=== PATIENT | female | born 1965 | race Caucasian/White ===

== ENCOUNTER 2016-04-03 18:52 | Emergency (ER) | payer MEDICAID, OTHER ==
[~2016-04-03] VITALS: Ht 134.6 cm; Wt 47.6 kg
[2016-04-03 19:05] VITALS: BP 190/72; PULSE 69; RESP 16; TEMP 98.1; O2SAT 98
[2016-04-03 21:00] VITALS: BP 149/80; PULSE 76; RESP 16; TEMP 98.4; O2SAT 99
== END 2016-04-03 21:00 | disposition home or self-care (01) ==
LOC: SED 18:52
DX: T82.838A Hemorrhage due to vascular prosthetic devices, implants and grafts, initial encounter (principal)
CPT/HCPCS: 99283

== ENCOUNTER 2016-06-05 16:55 | Inpatient (IN) | payer MEDICAID ==
[~2016-06-05] VITALS: Ht 149.9 cm; Wt 44.0 kg
[2016-06-05 16:55] VITALS: BP_SYST 212
--- NOTE | 2016-06-05 17:01 | NUR ---
BROUGHT BACK TO BED #4 AND REPORT GIVEN TO JEREMIE
--- NOTE | 2016-06-05 17:01 | NUR ---
Pt report received from MICAELA Donovan. Pt was seen at her PMD today and sent to ER r/t elevated B/P. Pt denies c/o headache, no C/P or SOB. Pt receives dialysis MWF, last dialyzed today. Dialysis shunt to LUE, non functional. Dialysis catheter to Right chest wall.
--- NOTE | 2016-06-05 17:25 | NUR ---
Pt to CT via stretcher, stable condition.
[2016-06-05] MEDS ORDERED: NITROGLYCERIN 0.4 MG TAB.SUBL SL ONE ×2 (17:30→19:30)
--- NOTE | 2016-06-05 17:35 | NUR ---
Pt returns from CT. Denies c/o pain or discomfort, no needs verbalized at this time.
[2016-06-05 17:58] LABS: BASOPHILS % (AUTO) 0.4 % (0.0-2.0); EOSINOPHILS # (AUTO) 0.1 K/uL (0.0-0.4); EOSINOPHILS % (AUTO) 1.4 % (0.0-4.0); HEMATOCRIT 41.1 % (36-48); LYMPHOCYTES # (AUTO) 1.1 K/uL (1.0-5.5); LYMPHOCYTES % (AUTO) 11.1 % (20.5-51.5); MEAN CORPUSCULAR HEMOGLOBIN 30 pg (27-31); MEAN CORPUSCULAR HGB CONC 32 % (32-36); MEAN CORPUSCULAR VOLUME 94 fL (79.0-98.0); MONOCYTES # (AUTO) 0.6 K/uL (0.0-1.0); MONOCYTES % (AUTO) 5.5 % (1.7-9.3); NEUTROPHILS # (AUTO) 8.3 K/uL (1.8-7.7); NEUTROPHILS % (AUTO) 81.6 % (40.0-70.0); PLATELET COUNT (AUTO) 173 K/uL (130-430); RED BLOOD CELL COUNT(AUTO) 4.35 MIL/uL (4.2-6.2); RED CELL DISTRIBUTION WIDTH 16.9 % (9.0-15.0); WHITE BLOOD COUNT (AUTO) 10.1 K/uL (4.8-10.8)
[2016-06-05 18:07] LABS: CREATININE 5.49 mg/dL (0.55-1.30); POTASSIUM 4.4 mmol/L (3.5-5.1)
[2016-06-05 18:09] LABS: PROTHROMBIN TIME 10.6 SECS (9.5-12.5)
[2016-06-05 18:12] LABS: ALBUMIN 3.9 g/dL (3.4-4.8); TOTAL BILIRUBIN 0.3 mg/dL (0.0-1.0); TOTAL PROTEIN, SERUM 8.9 g/dL (6.4-8.3)
[2016-06-05] MEDS ORDERED: ASPIRIN 81 MG TAB.CHEW PO ONE (18:45)
--- NOTE | 2016-06-05 19:08 | NUR ---
Received shift report from Rocío HINOJOSA. Patient in ER C/O elevated BP. No acute distress. Denies pain at this time. Patient states that she is anuric and unable to provide urine for urinalysis.
--- NOTE | 2016-06-05 19:10 | NUR ---
Patient is anuric. Unable to provide urine sample.
[2016-06-05] MEDS ORDERED: [UNRECOGNIZED DRUG - CODE] PO (19:15)
[2016-06-05] MEDS ORDERED: CHOL100053 PO (19:15)
[2016-06-05] MEDS ORDERED: PRO40 PO (19:15)
[2016-06-05] MEDS ORDERED: CLOP75TA2 PO (19:15)
[2016-06-05] MEDS ORDERED: ISMO20 PO (19:15)
[2016-06-05] MEDS ORDERED: ASA81 PO (19:15)
[2016-06-05] MEDS ORDERED: LISI40TA4 PO (19:15)
[2016-06-05] MEDS ORDERED: SEVE800T8 PO (19:15)
[2016-06-05] MEDS ORDERED: ATEN-41 PO (19:15)
--- NOTE | 2016-06-05 19:17 | NUR ---
Patient does not meet SEPSIS protocol.
[2016-06-05] MEDS ORDERED: TIMO5DRO4 OP (19:21)
[2016-06-05] MEDS ORDERED: LATA2.5D6 OP (19:21)
[2016-06-05] MEDS ORDERED: NITSL SL (19:21)
[2016-06-05] MEDS ORDERED: INSU100V11 SQ (19:21)
[2016-06-05] MEDS ORDERED: NOR10 PO (19:21)
[2016-06-05] MEDS ORDERED: LINA5TAB2 PO (19:21)
[2016-06-05] MEDS ORDERED: ALPR1TAB2 PO (19:21)
[2016-06-05] MEDS ORDERED: INSU100V (19:21)
--- NOTE | 2016-06-05 19:21 | NUR ---
Patient is ER HOLD until BP < 160 per TELE charge.
[2016-06-05] MEDS ORDERED: BRI.2% OP (19:23)
--- NOTE | 2016-06-05 19:23 | NUR ---
Medication reconciliation completed with loist provided by pt.
[2016-06-05] MEDS ORDERED: cloNIDine HCL 0.1 MG TABLET PO ONE (19:30)
[2016-06-05] MEDS ORDERED: DEXTROSE 50% JECT 50 ML DISP.SYRIN IVP PRN (19:45)
--- NOTE | 2016-06-05 20:20 | NUR ---
Informed Dr Wilson of sustained SBP > 200. Received the following orders. - Labetalol IVP 20mg NOW - Hemodialysis STAT
[2016-06-05] MEDS ORDERED: LABETALOL 100 MG/ 20ML VIAL IVP ONE (20:30)
--- NOTE | 2016-06-05 20:35 | NUR ---
Transfer to [facility] via ACLS protocol. Licensed nurse present. IV present no signs or symptoms of infiltration.
[2016-06-05] MEDS ORDERED: LABETALOL 100 MG/ 20ML VIAL ONE (20:44)
--- NOTE | 2016-06-05 20:52 | NUR ---
ADMIT NOTE Received pt from ER to the floor with a diagnosis of chest pain, elevated troponin. Admission process initiated. patient oriented to pain management, safety and call light-teach back done.
[2016-06-05 20:59] VITALS: BP_SYST 198
[2016-06-05] MEDS ORDERED: LATANOPROST 2.5 ML DROPS (XALATAN) OP SCH (21:00)
[2016-06-05] MEDS: BRIMONIDINE TARTRATE 0.2% 5 mL EYE DROPS OP SCH (21:00)
--- NOTE | 2016-06-05 21:11 | NUR ---
PM ASSESSMENT PT. A/OX4, BLOOD PRESSURE IS 198/92, DENIES PAIN, DENIES HEADACHE AT THIS TIME, PRN CLONIDINE TO BE GIVEN, NOTED WITH R. CHEST SARITA CATH COVERED WITH DRESSING CLEAN, DRY, INTACT, NOTED WITH OLD FISTULA TO LEFT UPPER ARM, UPDATED WITH PLAN OF CARE, ENCOURAGED PT. TO USE CALL LIGHT FOR ASSISTANCE, CALL LIGHT WITHIN REACH, WILL CONTINUE TO MONITOR.
[2016-06-05] MEDS: cloNIDine HCL 0.1 MG TABLET PO PRN (21:43)
[2016-06-05] MEDS: ALPRAZolam 0.25 MG TABLET PO SCH (21:44)
--- NOTE | 2016-06-05 22:36 | NUR ---
CONSULT: CONSULT CALLED FOR DR. LUJAN I SPOKE WITH CRISTIAN MARSHALL IS HYDRO STATION OPERATOR FOR DR. LUJAN REASON FOR CONSULT: CH AND ELEVATED TROPONIN NUMBER I CALLED [phone]
--- NOTE | 2016-06-05 22:38 | NUR ---
CONSULT: CONSULT CALLED FOR ROXIE SAN I SPOKE WITH CRISTIAN CASTRO IS MERCHANT POLICE FOR DR. FAUSTIN REASON FOR CONSULT: DIALYSIS NUMBER I CALLED: [phone]
--- NOTE | 2016-06-05 22:48 | NUR ---
DIALYSIS NURSE IS AT THE BEDSIDE.
[2016-06-06] VITALS (7 sets, daily range): BP systolic 165–213
--- NOTE | 2016-06-06 | NUR ---
RN ROUNDS PT. STILL RECEIVING DIALYSIS AT THIS TIME.
--- NOTE | 2016-06-06 02:01 | NUR ---
DIALYSIS COMPLETE DIALYSIS COMPLETE WITH 1.2 L OUTPUT. DIALYSIS NURSE CHANGED DRESSING TO DIALYSIS ACCESS.
--- NOTE | 2016-06-06 03:15 | NUR ---
DR. MARSHALL SPOKE WITH DR. MARSHALL, MADE AWARE PT.'S BLOOD PRESSURE IS ELEVATED AT 200/80 AND THAT SHE IS C/O HEADACHE, MADE AWARE OF TROPONIN 0.142, SAID TO CONTINUE MONITORING THE PATIENT, NO FURTHER ORDERS RECEIVED AT THIS TIME.
[2016-06-06] MEDS: cloNIDine HCL 0.1 MG TABLET PO PRN ×2 (04:41→23:55)
[2016-06-06] MEDS ORDERED: LABETALOL 100 MG/ 20ML VIAL IVP ONE (05:45)
--- NOTE | 2016-06-06 05:45 | NUR ---
DR. ALCANTARA PAGED AND SPOKE WITH DR. ALCANTARA, MADE AWARE BLOOD PRESSURE IS STILL ELEVATED AT 222/99 AND THAT PT. STILL HAS A HEADACHE, INFORMED DR. ALCANTARA THAT DR. MARSHALL IS AWARE AND DID NOT WANT ANY NEW ORDERS. DR. ALCANTARA ORDERED ONE TIME DOSE OF LABETALOL 20 MG IVP NOW. ORDER NOTED AND TO BE CARRIED OUT.
[2016-06-06] MEDS: INSULIN REGULAR, HUMAN 100 UNITS/ML, 10 ML VIAL (novoLIN R) SUBCUT PRN ×3 (05:56→18:35)
--- NOTE | 2016-06-06 06:00 | NUR ---
ACCUCHECK BLOOD MCZYS=959, 4 UNITS REGULAR INSULIN GIVEN ORDERED.
--- NOTE | 2016-06-06 06:48 | NUR ---
CLOSING NOTES CURRENT BLOOD PRESSURE 195/88, O2 SAT. 98% ON ROOM AIR, PT. SLEEPING QUIETLY AT THIS TIME, IV ACCESS PATENT AND BENIGN.
--- NOTE | 2016-06-06 08:00 | NUR ---
OPENING NOTES PATIENT IS AWAKE AND ALERT, STATES HER APPETITE HAS BEEN POOR.
[2016-06-06] MEDS ORDERED: amLODIPine BESYLATE 10 MG TABLET PO SCH (09:00)
[2016-06-06] MEDS ORDERED: TIMOLOL MALEATE 0.5% OPHTHALMIC DROPS 5 ML OP SCH (09:00)
[2016-06-06] MEDS: BRIMONIDINE TARTRATE 0.2% 5 mL EYE DROPS OP SCH ×3 (09:00→21:00)
--- NOTE | 2016-06-06 09:30 | NUR ---
DR LUJAN IN TO SEE PATIENT. NEW ORDERS AND ASJUSTMENTS TO PO BP MEDS GIVEN. SERIAL TROPONINS SCHEDULED. DR LUJAN DOES NOT WANT A REPEAT BMP AT THIS TIME.
[2016-06-06] MEDS: LISINOPRIL 20 MG TABLET PO SCH (09:49)
[2016-06-06] MEDS: ATENOLOL 25 MG TABLET(TENORMIN) PO SCH (09:49)
[2016-06-06] MEDS: PANTOPRAZOLE SODIUM 40 MG TAB PO SCH (09:50)
[2016-06-06] MEDS: CLOPIDOGREL BISULFATE 75 MG TABLET PO SCH (09:50)
[2016-06-06] MEDS: ASPIRIN 81 MG TAB.CHEW PO SCH (09:50)
[2016-06-06] MEDS ORDERED: cloNIDine HCL 0.2 MG TABLET PO ONE (10:15)
[2016-06-06] MEDS ORDERED: ATORVASTATIN 20 MG TABLET PO ONE (10:15)
[2016-06-06] MEDS ORDERED: hydrALAZINE HCL 25 MG TABLET PO ONE (10:15)
--- NOTE | 2016-06-06 10:30 | NUR ---
PATIENT MEDICATED ORDERED.
--- NOTE | 2016-06-06 13:00 | NUR ---
PATIENT GIVEN FOOD BEFORE ACCUCHECK. BG 412. 12 UNITS OF INSULIN ORDERED FOR COVERAGE. DR MARICRUZ MELENDEZ
[2016-06-06] MEDS: hydrALAZINE HCL 25 MG TABLET PO SCH ×2 (15:11→21:11)
--- NOTE | 2016-06-06 16:00 | NUR ---
DR SNOW IN TO SEE PATIENT. NEW ORDERS GIVEN.
[2016-06-06] MEDS ORDERED: DOCUSATE SODIUM 100 MG CAPSULE PO PRN (16:45)
--- NOTE | 2016-06-06 17:05 | NUR ---
FAMILY IS AT BEDSIDE.
[2016-06-06] MEDS ORDERED: COMMUNICATION ORDER XX ONE ×2 (17:15→19:45)
[2016-06-06] MEDS ORDERED: cloNIDine HCL 0.2 MG/24 HR PATCH.TDWK TD ONE (17:30)
--- NOTE | 2016-06-06 19:36 | NUR ---
DR ALCANTARA PAGED AT 1700 REGARDING ORDER FOR 100UNITS OF INSULIN. FAMILY STATES IT IS 11 UNITS NIGHTLY. AWAITING RETURN CALL AT THIS TIME.
--- NOTE | 2016-06-06 19:45 | NUR ---
PM ASSESSMENT PT. A/OX4, B/P 165/83, NO DISTRESS NOTED, DENIES PAIN, NOTED WITH DIALYSIS ACCESS TO R. UPPER CHEST COVERED WITH DRESSING, NOTED WITH OLD NON FUNCTIONING FISTULA TO LEFT UPPER ARM, UPDATED WITH PLAN OF CARE, ENCOURAGED PT. TO USE CALL LIGHT FOR ASSISTANCE, FALL/SAFETY PRECAUTIONS MAINTAINED, CALL LIGHT WITHIN REACH, WILL CONTINUE TO MONITOR.
[2016-06-06] MEDS: LATANOPROST 2.5 ML DROPS (XALATAN) OP SCH (21:00)
[2016-06-06] MEDS ORDERED: cloNIDine HCL 0.2 MG TABLET PO SCH (21:00)
[2016-06-06] MEDS: ALPRAZolam 0.25 MG TABLET PO SCH (21:11)
[2016-06-06] MEDS: NIFEDIPINE 30 MG TAB.ER.24 PO SCH (21:11)
--- NOTE | 2016-06-06 21:30 | NUR ---
RN ROUNDS PT. RESTING QUIETLY, NO DISTRESS NOTED, DENIES PAIN, CALL LIGHT WITHIN REACH, WILL CONTINUE TO MONITOR.
--- NOTE | 2016-06-06 23:30 | NUR ---
ACCUCHECK BLOOD SRMHW=560, NO COVERAGE REQUIRED.
[2016-06-07] VITALS: BP_SYST 170
--- NOTE | 2016-06-07 | NUR ---
CLONIDINE B/P IS 170/79, CLONIDINE 0.1MG PO GIVEN ORDERED. WILL CONTINUE TO MONITOR.
--- NOTE | 2016-06-07 02:00 | NUR ---
RN ROUNDS PT. RESTING QUIETLY, NO DISTRESS NOTED, DENIES PAIN, CALL LIGHT WITHIN REACH, WILL CONTINUE TO MONITOR.
[2016-06-07 04:00] VITALS: BP_SYST 137
--- NOTE | 2016-06-07 04:00 | NUR ---
RN ROUNDS PT. RESTING QUIETLY, NO DISTRESS NOTED, DENIES PAIN, CALL LIGHT WITHIN REACH, WILL CONTINUE TO MONITOR.
[2016-06-07] MEDS: hydrALAZINE HCL 25 MG TABLET PO SCH ×3 (05:31→21:31)
--- NOTE | 2016-06-07 06:21 | NUR ---
ACCUCHECK/CLOSING NOTES BLOOD PXNYC=329, 4 UNITS REGULAR INSULIN GIVEN ORDERED. PT. RESTING QUIETLY, VITAL SIGNS STABLE, NO DISTRESS NOTED, DENIES PAIN. ALL ANTICIPATED NEEDS MET, KEPT COMFORTABLE.
[2016-06-07] MEDS: INSULIN REGULAR, HUMAN 100 UNITS/ML, 10 ML VIAL (novoLIN R) SUBCUT PRN ×3 (06:32→18:07)
[2016-06-07 06:44] LABS: BASOPHILS % (AUTO) 0.2 % (0.0-2.0); EOSINOPHILS # (AUTO) 0.2 K/uL (0.0-0.4); EOSINOPHILS % (AUTO) 2.1 % (0.0-4.0); HEMATOCRIT 39.9 % (36-48); HEMOGLOBIN 12.8 g/dL (12.0-16.0); LYMPHOCYTES # (AUTO) 1.4 K/uL (1.0-5.5); LYMPHOCYTES % (AUTO) 15.6 % (20.5-51.5); MEAN CORPUSCULAR HEMOGLOBIN 31 pg (27-31); MEAN CORPUSCULAR HGB CONC 32 % (32-36); MEAN CORPUSCULAR VOLUME 95 fL (79.0-98.0); MONOCYTES # (AUTO) 0.7 K/uL (0.0-1.0); MONOCYTES % (AUTO) 7.3 % (1.7-9.3); NEUTROPHILS # (AUTO) 6.9 K/uL (1.8-7.7); NEUTROPHILS % (AUTO) 74.8 % (40.0-70.0); PLATELET COUNT (AUTO) 156 K/uL (130-430); WHITE BLOOD COUNT (AUTO) 9.2 K/uL (4.8-10.8)
[2016-06-07 06:48] LABS: ALBUMIN 3.4 g/dL (3.4-4.8); CALCIUM 9.1 mg/dL (8.4-11.0); CREATININE 5.52 mg/dL (0.55-1.30); POTASSIUM 4.5 mmol/L (3.5-5.1); TOTAL BILIRUBIN 0.3 mg/dL (0.0-1.0); TOTAL PROTEIN, SERUM 7.8 g/dL (6.4-8.3)
--- NOTE | 2016-06-07 07:44 | NUR ---
OPENING NOTE PATIENT IS AWAKE, ALERT AND ORIENTED. SBP IS 140'S. PT DENIES ANY PAIN, NAUSEA AND NO SIGNS OF DISTRESS. ALL OTHER VITALS WNL. PT SCHEDULED FOR DIALYSIS TODAY. ORAL MEDS TO BE HELD PRIOR TO AM DIALYSIS. WILL MONITOR BP CLOSELY THROUGHOUT DIALYSIS AND ADMINISTER MEDICATIONS IF NEEDED. PER LEARNING ENGINEER PT HAD NO ACUTE DISTRESS AND REMAINED COMFORTABLE, SLEPT WELL. DR ALCANTARA IN TO SEE PATIENT THIS AM.
[2016-06-07 08:00] VITALS: BP_SYST 142
[2016-06-07] MEDS ORDERED: HEPARIN IV FLUSH 300 UNITS/3ML SYR ONE (08:22)
--- NOTE | 2016-06-07 08:35 | NUR ---
PATIENT RECEIVING ORDERED DIALYSIS. DR LUJAN IN TO SEE PATIENT. DC'D BLOOD PRESSURE CONTROL PATCHES.
[2016-06-07] MEDS: TIMOLOL MALEATE 0.5% OPHTHALMIC DROPS 5 ML OP SCH (09:00)
[2016-06-07] MEDS: BRIMONIDINE TARTRATE 0.2% 5 mL EYE DROPS OP SCH ×3 (09:00→21:00)
--- NOTE | 2016-06-07 09:37 | NUR ---
DR ALCANTARA IN TO SEE PATIENT. PT MAY BE DC'D HOME IF SHE REMAINS STABLE AFTER DIALYSIS.
--- NOTE | 2016-06-07 11:22 | NUR ---
PATIENT REMAINS STABLE ON DIALYSIS. SBP REMAINS STABLE, NO ACUTE DISTRESS.
[2016-06-07 12:19] VITALS: BP_SYST 171
--- NOTE | 2016-06-07 12:21 | NUR ---
patient stable post dialysis, sitting up in bed eating lunch, lungs clear
[2016-06-07] MEDS: ATORVASTATIN 20 MG TABLET PO SCH (12:27)
[2016-06-07] MEDS: ASPIRIN 81 MG TAB.CHEW PO SCH (12:27)
[2016-06-07] MEDS: PANTOPRAZOLE SODIUM 40 MG TAB PO SCH (12:27)
[2016-06-07] MEDS: CLOPIDOGREL BISULFATE 75 MG TABLET PO SCH (12:27)
[2016-06-07] MEDS: LISINOPRIL 20 MG TABLET PO SCH (12:28)
[2016-06-07] MEDS: ATENOLOL 25 MG TABLET(TENORMIN) PO SCH (12:28)
[2016-06-07] MEDS: NIFEDIPINE 30 MG TAB.ER.24 PO SCH ×3 (12:28→21:32)
--- NOTE | 2016-06-07 15:29 | NUR ---
patient remains stable, no signs of distress. awake, alert and reports being comfortable. pt is asking when she can go home
--- NOTE | 2016-06-07 16:01 | NUR ---
sbp noted to be 191/93, hr 65 at [facility]. renal specialists paged as clonodine patch and nitro patch previously ordered by nephro have been DC'd by highway maintenance crew worker since AM
[2016-06-07 16:03] VITALS: BP_SYST 191
--- NOTE | 2016-06-07 16:13 | NUR ---
SPOKE W DR RANKIN FROM NEPHROLOGY WHO REINSTATED PT CLONIDINE PATCH ORDER
[2016-06-07 16:14] LABS: CALCIUM 9.8 mg/dL (8.4-11.0); CREATININE 3.57 mg/dL (0.55-1.30); POTASSIUM 3.9 mmol/L (3.5-5.1)
[2016-06-07] MEDS ORDERED: COMMUNICATION ORDER XX ONE (18:00)
[2016-06-07] MEDS ORDERED: cloNIDine HCL 0.2 MG/24 HR PATCH.TDWK TD ONE (18:00)
[2016-06-07] MEDS: cloNIDine HCL 0.1 MG TABLET PO PRN (18:04)
--- NOTE | 2016-06-07 19:30 | NUR ---
INITIAL NOTE PT. RECEIVED AAOX4, NO S/S OF SOB OR DISTRESS. PT. DENIES PAIN AT THIS TIME. BP WAS HIGH, PER DAY NURSE IT HAS BEEN TRENDING HIGH, BUT WELL CONTROLLED WITH PATCH. WILL ADMINISTER PM BP MEDS AND REASSESS, AND ADMINISTER PRN MEDS NEEDED. PT. DAUGHTER HAS BROUGHT IN EYE DROPS TO TREAT GLAUCOMA SINCE THEY WERE NOT MADE AVAILABLE BY PHARMACY. WILL ADMINISTER WITH PM. MEDS. IV ACCESS TO RIGHT HAND, SALINE LOCK WITH NO REDNESS OR SWELLING TO THE SITE. RIGHT UPPER CHEST PORTACATH NOTED. LEFT ARM FISTULA IN PLACE, PER PT. NO LONGER WORKS AND IS NOT ACCESSED FOR DIALYSIS. PLAN OF CARE HAS BEEN DISCUSSED, VERBALIZES UNDERSTANDING. ENCOURAGED TO CALL FOR ASSISTANCE. WILL CONT. TO MONITOR FOR CHANGES. SAFETY AND FALL PRECAUTIONS IN PLACE, CALL LIGHT IN REACH.
[2016-06-07 20:00] VITALS: BP_SYST 185
[2016-06-07] MEDS: LATANOPROST 2.5 ML DROPS (XALATAN) OP SCH (21:00)
[2016-06-07] MEDS: ALPRAZolam 0.25 MG TABLET PO SCH (21:32)
--- NOTE | 2016-06-07 23:08 | NUR ---
ROUNDS LATE ENTRY DUE TO PT. CARE PT RESTING IN BED WITH EYES CLOSED. CHEST RISE AND FALL NOTED. NO S/S OF SOB OR DISTRESS. NO FACIAL GRIMACING FOR PAIN. WILL CONT TO MONITOR FOR CHANGES. SAFETY AND FALL PRECAUTIONS IN PLACE. CALL LIGHT IN REACH.
[2016-06-08] VITALS (9 sets, daily range): BP systolic 125–180
--- NOTE | 2016-06-08 00:15 | NUR ---
ROUNDS PT RESTING IN BED WITH EYES CLOSED. CHEST RISE AND FALL NOTED. NO S/S OF SOB OR DISTRESS. NO FACIAL GRIMACING FOR PAIN. WILL CONT TO MONITOR FOR CHANGES. SAFETY AND FALL PRECAUTIONS IN PLACE. CALL LIGHT IN REACH.
--- NOTE | 2016-06-08 04:20 | NUR ---
ROUNDS PT. RESTING IN BED WITH EYES CLOSED, CHEST RISE AND FALL NOTED. NO S/S OF SOB OR DISTRESS AT THIS TIME. WILL CONT. TO MONITOR. CALL LIGHT IN REACH, BED IN LOWEST LOCKED POSITION.
[2016-06-08] MEDS: hydrALAZINE HCL 25 MG TABLET PO SCH ×2 (05:18→14:10)
--- NOTE | 2016-06-08 06:35 | NUR ---
CLOSING NOTE PT. RESTING IN BED. DENIES PAIN AT THIS TIME. NO S/S OF SOB OR DISTRESS. BP WAS WITHIN A NORMAL RANGE THIS AM, MANAGED WELL WITH MEDICATIONS. ACCU CHECK DONE, BS WITHIN NORMAL LIMITS, NO INSULIN COVERAGE NEEDED PER SLIDING SCALE. ALL NECESSARY NEEDS WERE MET THROUGHOUT THE SHIFT, SAFETY AND FALL PRECAUTIONS WERE MAINTAINED. WILL ENDORSE CARE TO AM NURSE. CALL LIGHT IN REACH, BED IN LOWEST LOCKED POSITION.
--- NOTE | 2016-06-08 08:00 | NUR ---
RN ROUNDS PATIENT LYING ON BED ALERT ORIENTEDX4 PLEASANT, NO ISSUE,, PATIENT WAS ASSESSED AND HER MED WILL BE GIVEN TO HER AND WILL FOLLOW UP ON HER BLOOD PRESSURE WELL HER BLOOD SUGAR
[2016-06-08] MEDS: PANTOPRAZOLE SODIUM 40 MG TAB PO SCH (08:28)
[2016-06-08] MEDS: ATORVASTATIN 20 MG TABLET PO SCH (08:28)
[2016-06-08] MEDS: CLOPIDOGREL BISULFATE 75 MG TABLET PO SCH (08:29)
[2016-06-08] MEDS: ASPIRIN 81 MG TAB.CHEW PO SCH (08:29)
[2016-06-08] MEDS: LISINOPRIL 20 MG TABLET PO SCH (08:29)
[2016-06-08] MEDS: NIFEDIPINE 30 MG TAB.ER.24 PO SCH ×2 (08:30→15:56)
[2016-06-08] MEDS: ATENOLOL 25 MG TABLET(TENORMIN) PO SCH (08:30)
[2016-06-08] MEDS: BRIMONIDINE TARTRATE 0.2% 5 mL EYE DROPS OP SCH ×2 (08:33→15:57)
[2016-06-08] MEDS: TIMOLOL MALEATE 0.5% OPHTHALMIC DROPS 5 ML OP SCH (08:34)
--- NOTE | 2016-06-08 10:00 | NUR ---
RN ROUNDS PATIENT WITH AMBULATED WITH ASSIST IN THE HALLWAYS, PATIENT TOLERATED IT. HE BLOOD PRESSURE CONTINUES TO GOES TOWARDS THE NORMAL LEVELS WILL FOLLOW UP
--- NOTE | 2016-06-08 12:00 | NUR ---
RN ROUNDS PATIENT LYING ON BED NO COMPLAINTS OF PAIN OR HEADACHE, BLOOD PRESSURE IS NORMAL, BLOOD SUGAR WAS MEASURED AND PATIENT WAS COVERED FOR HER HYPERGLYCEMIA, WILL CONTINUE TO MONITOR
[2016-06-08] MEDS: INSULIN REGULAR, HUMAN 100 UNITS/ML, 10 ML VIAL (novoLIN R) SUBCUT PRN (12:35)
--- NOTE | 2016-06-08 15:00 | NUR ---
RN ROUNDS PATIENT SITTING BY THE BED EDGE< ALERT ORIENTED X 4, PATIENT WAS GIVEN HER BLOOD PRESSURE MEDICATION, HER BLOOD PRESSURE IS NORMALIZING, WILL FOLLOW UP
--- NOTE | 2016-06-08 18:00 | NUR ---
RN ROUNDS PATIENT WAS SERVED HER DINNER AFTER CHECKING HER BLOOD SUGAR WITH CAME UP TO 83, SHE GOT NO COVERAGE FOR THAT, SHE AMBULATED WITH ASSISTANCE IN THE HALLWAYS. BLOOD PRESSURE IS NOW ON THE NORMAL SIDE
--- NOTE | 2016-06-08 19:20 | NUR ---
initial nursing notes: Patient is awake. Patient is watching television. Patient denies of having pain.
--- NOTE | 2016-06-08 20:30 | NUR ---
nursing rounds: Cardiac consult verbally stated that patient is cleared to go home bust needs approval from primary MD, Dr. Sterling notified. Dr. Sterling also notified regarding patient's elevated BP. Clonidine PO X 1 ordered to give and hold all other medications, as patient may take the rest of the medications when patient gets home, per Dr. Sterling.
[2016-06-08] MEDS ORDERED: cloNIDine HCL 0.2 MG TABLET PO ONE (21:00)
--- NOTE | 2016-06-08 22:55 | NUR ---
nursing rounds: Notified Dr. Sterling that Clonidine PO was held as patient's BP has been slowly stabilizing. Patient stated that she got anxious at times that is why her BP gets elevated. Latest BP= 148/74 mmHg, P= 65 bpm. Patient denies of having pain, headache nor shortness of breath. Dr. Sterling ordered to discharge patient to home.
[2016-06-09 00:06] VITALS: BP_SYST 148
--- NOTE | 2016-06-09 00:57 | NUR ---
D/C Patient Patient's daughter, Gely Romero, had just arrived to pick-up patient. Patient given medication reconciliation form and D/C instructions. Patient verbalized understanding. Instructed patient to folow up with her Primary Care Physician as ordered by Dr. Sterling. Also encouraged patient, to go to the ER if symptoms persists. Patient declined to use wheelchair. Patient ambulatory with steady gait for discharge to home. Patient in stable condition, ID band removed. IV catheter removed, intact and dressing applied, no active bleeding. Patient educated on pain management. All belongings sent with patient.
[2016-06-11] MEDS ORDERED: cloNIDine HCL 0.2 MG/24 HR PATCH.TDWK TD SCH (09:00)
[2016-06-13] MEDS ORDERED: cloNIDine HCL 0.2 MG/24 HR PATCH.TDWK TD SCH (09:00)
[2016-06-14] MEDS ORDERED: cloNIDine HCL 0.2 MG/24 HR PATCH.TDWK TD SCH (09:00)
== END 2016-06-09 01:00 | disposition home or self-care (01) | DRG 194 ==
LOC: SED 16:55 → STU 19:14
PROVIDERS: ADMIT Internal Medicine Hospice and Palliative Medicine; ATTEND Internal Medicine Hospice and Palliative Medicine
PROC: 5A1D60Z (ICD-10-PCS; principal; 2016-06-05)
DX: I13.2 Hypertensive heart and chronic kidney disease with heart failure and with stage 5 chronic kidney disease, or end stage renal disease (principal); N18.6 End stage renal disease; E11.21 Type 2 diabetes mellitus with diabetic nephropathy; I25.10 Atherosclerotic heart disease of native coronary artery without angina pectoris; D63.1 Anemia in chronic kidney disease; I50.9 Heart failure, unspecified; E87.1 Hypo-osmolality and hyponatremia; R51 Headache; R07.89 Other chest pain; E11.22 Type 2 diabetes mellitus with diabetic chronic kidney disease; Z99.2 Dependence on renal dialysis; Z79.899 Other long term (current) drug therapy; Z79.82 Long term (current) use of aspirin; Z79.4 Long term (current) use of insulin; Z95.5 Presence of coronary angioplasty implant and graft
CPT/HCPCS: 36415; 70450-TC; 71010; 80048; 80053; 80061; 82962; 83880; 84484; 85025; 85610-TC; 85730-TC; 87081; 90935; 90937; 93005; 93306; 96374; 99285; J1642; J1815; J3490; J7030

== ENCOUNTER 2016-06-12 06:14 | Inpatient (IN) | payer MEDICAID ==
[~2016-06-12] VITALS: Ht 152.4 cm; Wt 47.2 kg
[2016-06-12] VITALS (17 sets, daily range): BP systolic 136–224
[~2016-06-12 06:14] MED LIST: ALPR1TAB2 PO; ASA81 PO; ATEN-41 PO; BRI.2% OP; CHOL100053 PO; CLOP75TA2 PO; INSU100V; INSU100V11 SQ; ISMO20 PO; LATA2.5D6 OP; LINA5TAB2 PO; LISI40TA4 PO; NITSL SL; NOR10 PO; PRO40 PO; SEVE800T8 PO; TIMO5DRO4 OP; [UNRECOGNIZED DRUG - CODE] PO
[2016-06-12 07:53] LABS: PROTHROMBIN TIME 11.1 SECS (9.5-12.5)
[2016-06-12 07:57] LABS: BASOPHILS # (AUTO) 0.1 K/uL (0.0-0.2); BASOPHILS % (AUTO) 0.7 % (0.0-2.0); EOSINOPHILS # (AUTO) 0.1 K/uL (0.0-0.4); EOSINOPHILS % (AUTO) 0.4 % (0.0-4.0); HEMATOCRIT 33.6 % (36-48); LYMPHOCYTES # (AUTO) 1.6 K/uL (1.0-5.5); LYMPHOCYTES % (AUTO) 12.6 % (20.5-51.5); MEAN CORPUSCULAR HEMOGLOBIN 31 pg (27-31); MEAN CORPUSCULAR HGB CONC 33 % (32-36); MEAN CORPUSCULAR VOLUME 94 fL (79.0-98.0); MONOCYTES # (AUTO) 0.8 K/uL (0.0-1.0); MONOCYTES % (AUTO) 6.4 % (1.7-9.3); NEUTROPHILS % (AUTO) 79.9 % (40.0-70.0); PLATELET COUNT (AUTO) 106 K/uL (130-430); RED BLOOD CELL COUNT(AUTO) 3.58 MIL/uL (4.2-6.2); RED CELL DISTRIBUTION WIDTH 17.4 % (9.0-15.0); WHITE BLOOD COUNT (AUTO) 12.6 K/uL (4.8-10.8)
[2016-06-12] MEDS ORDERED: NIFE60TA18 PO (08:01)
[2016-06-12 08:03] LABS: ALBUMIN 3.3 g/dL (3.4-4.8); CALCIUM 8.5 mg/dL (8.4-11.0); TOTAL BILIRUBIN 0.4 mg/dL (0.0-1.0); TOTAL PROTEIN, SERUM 7.8 g/dL (6.4-8.3)
[2016-06-12 08:07] LABS: POTASSIUM 8.5 mmol/L (3.5-5.1)
[2016-06-12 08:08] LABS: CREATININE 10.12 mg/dL (0.55-1.30)
[2016-06-12] MEDS ORDERED: CALCIUM CHLORIDE 1 GM/10 ML DISP.SYRIN (14 mEq Ca++/SYR) ONE (08:14)
[2016-06-12] MEDS ORDERED: DEXTROSE 50% JECT 50 ML DISP.SYRIN ONE (08:14)
[2016-06-12] MEDS ORDERED: INSULIN REGULAR, HUMAN 10 UNITS/0.1 ML INJ IVP ONE (08:15)
[2016-06-12] MEDS ORDERED: INSULIN REGULAR, HUMAN 10 UNITS/0.1 ML INJ ONE (08:15)
[2016-06-12] MEDS ORDERED: NS 250 ML IV ONE (08:15)
[2016-06-12] MEDS ORDERED: CALCIUM CHLORIDE 1 GM/10 ML DISP.SYRIN (14 mEq Ca++/SYR) IVP ONE (08:15)
[2016-06-12] MEDS ORDERED: DEXTROSE 50% JECT 50 ML DISP.SYRIN IVP ONE (08:15)
[2016-06-12] MEDS ORDERED: ONDANSETRON HCL 4 MG/2 ML VIAL ONE (08:24)
[2016-06-12] MEDS ORDERED: SEN30 PO (08:25)
[2016-06-12] MEDS ORDERED: ONDANSETRON HCL 4 MG/2 ML VIAL IVP ONE (08:30)
[2016-06-12] MEDS: SODIUM BICARBONATE 8.4% JECT 50 MEQ in 0.45% NACL 1,000 ML IV SCH ×2 (09:29→14:00)
[2016-06-12] MEDS ORDERED: ONDANSETRON HCL 4 MG/2 ML VIAL IVP PRN (09:30)
[2016-06-12] MEDS ORDERED: NITROGLYCERIN 0.4 MG TAB.SUBL SL PRN (09:45)
[2016-06-12] MEDS ORDERED: NON-FORMULARY MEDICATION (Cholecalciferol (Vitamin D3) (Vitamin D) 50,000 UNIT) PO SCH (09:45)
[2016-06-12] MEDS: SEVELAMER HCL 800 MG TABLET PO SCH ×2 (12:17→17:56)
[2016-06-12] MEDS ORDERED: COMMUNICATION ORDER XX ONE (13:30)
[2016-06-12] MEDS ORDERED: PANTOPRAZOLE SODIUM 40 MG TAB PO ONE (13:45)
[2016-06-12] MEDS ORDERED: CLOPIDOGREL BISULFATE 75 MG TABLET PO ONE (13:45)
[2016-06-12] MEDS ORDERED: CINACALCET HCL 30 MG TABLET PO ONE (13:45)
[2016-06-12] MEDS ORDERED: ATENOLOL 25 MG TABLET(TENORMIN) PO ONE (13:45)
[2016-06-12] MEDS ORDERED: ASPIRIN 81 MG TAB.CHEW PO ONE (13:45)
[2016-06-12] MEDS ORDERED: ENOXAPARIN SODIUM 30 MG/0.3 ML SYRINGE SUBCUT ONE (13:45)
[2016-06-12] MEDS ORDERED: amLODIPine BESYLATE 10 MG TABLET PO ONE (13:45)
[2016-06-12] MEDS ORDERED: ISOSORBIDE MONONITRATE 30 MG TAB.ER.24H PO ONE (13:45)
[2016-06-12] MEDS ORDERED: NIFEDIPINE 60 MG TABLET.SA (PROCARDIA XL 60 MG) PO ONE (13:45)
[2016-06-12] MEDS ORDERED: LANTHANUM CARBONATE 1000 MG PO SCH (15:00)
[2016-06-12] MEDS: BRIMONIDINE TARTRATE 0.2% 5 mL EYE DROPS OP SCH ×2 (15:14→21:09)
[2016-06-12] MEDS: FOSRENOL 1000 MG PO SCH ×2 (15:27→21:08)
[2016-06-12] MEDS ORDERED: hydrALAZINE HCL 20 MG/ML VIAL IVP PRN (17:15)
[2016-06-12] MEDS ORDERED: hydrALAZINE HCL 20 MG/ML VIAL ONE (17:20)
[2016-06-12] MEDS ORDERED: GLUCOSE 15 GM GEL (in 37.5 GM TUBE) PO PRN ×2 (18:00)
[2016-06-12] MEDS: INSULIN REGULAR, HUMAN 100 UNITS/ML, 10 ML VIAL (novoLIN R) SUBCUT PRN ×2 (18:00→21:19)
[2016-06-12] MEDS ORDERED: DEXTROSE 50%-WATER 50 ML DISP.SYRIN IVP PRN ×2 (18:00)
[2016-06-12] MEDS ORDERED: SEVELAMER HCL 800 MG TABLET ONE (18:09)
[2016-06-12] MEDS ORDERED: traMADol HCL HCL 50 MG TABLET (ULTRAM) PO PRN (18:15)
[2016-06-12] MEDS ORDERED: ACETAMINOPHEN 325 MG TABLET PO PRN (18:15)
[2016-06-12] MEDS ORDERED: ACETAMINOPHEN 325 MG TABLET ONE (18:24)
[2016-06-12 19:22] LABS: ALBUMIN 3.3 g/dL (3.4-4.8); CALCIUM 9.4 mg/dL (8.4-11.0); CREATININE 4.31 mg/dL (0.55-1.30); POTASSIUM 4.2 mmol/L (3.5-5.1); TOTAL BILIRUBIN 0.4 mg/dL (0.0-1.0); TOTAL PROTEIN, SERUM 8.1 g/dL (6.4-8.3)
[2016-06-12] MEDS ORDERED: INSULIN REGULAR, HUMAN 100 UNITS/ML, 10 ML VIAL SUBCUT SCH (21:00)
[2016-06-12] MEDS: ALPRAZolam 0.25 MG TABLET PO SCH (21:07)
[2016-06-12] MEDS: LATANOPROST 2.5 ML DROPS (XALATAN) OP SCH (21:10)
[2016-06-13] VITALS (13 sets, daily range): BP systolic 120–165
[2016-06-13 06:49] LABS: ALBUMIN 3.2 g/dL (3.4-4.8); CALCIUM 8.7 mg/dL (8.4-11.0); CREATININE 5.32 mg/dL (0.55-1.30); PHOSPHORUS 4.6 mg/dL (2.7-4.5); POTASSIUM 4.4 mmol/L (3.5-5.1); TOTAL BILIRUBIN 0.3 mg/dL (0.0-1.0); TOTAL PROTEIN, SERUM 7.5 g/dL (6.4-8.3)
[2016-06-13 06:51] LABS: BASOPHILS % (AUTO) 0.4 % (0.0-2.0); EOSINOPHILS # (AUTO) 0.2 K/uL (0.0-0.4); EOSINOPHILS % (AUTO) 1.9 % (0.0-4.0); HEMATOCRIT 35.5 % (36-48); HEMOGLOBIN 11.6 g/dL (12.0-16.0); LYMPHOCYTES # (AUTO) 1.1 K/uL (1.0-5.5); LYMPHOCYTES % (AUTO) 12.6 % (20.5-51.5); MEAN CORPUSCULAR HEMOGLOBIN 31 pg (27-31); MEAN CORPUSCULAR HGB CONC 33 % (32-36); MEAN CORPUSCULAR VOLUME 95 fL (79.0-98.0); MONOCYTES # (AUTO) 0.8 K/uL (0.0-1.0); MONOCYTES % (AUTO) 10.1 % (1.7-9.3); NEUTROPHILS # (AUTO) 6.3 K/uL (1.8-7.7); PLATELET COUNT (AUTO) 129 K/uL (130-430); RED BLOOD CELL COUNT(AUTO) 3.76 MIL/uL (4.2-6.2); RED CELL DISTRIBUTION WIDTH 16.8 % (9.0-15.0)
[2016-06-13 07:05] LABS: WHITE BLOOD COUNT (AUTO) 8.4 K/uL (4.8-10.8)
[2016-06-13] MEDS: ASPIRIN 81 MG TAB.CHEW PO SCH (08:13)
[2016-06-13] MEDS: SEVELAMER HCL 800 MG TABLET PO SCH ×3 (08:13→17:03)
[2016-06-13] MEDS: amLODIPine BESYLATE 10 MG TABLET PO SCH (08:14)
[2016-06-13] MEDS: CLOPIDOGREL BISULFATE 75 MG TABLET PO SCH (08:14)
[2016-06-13] MEDS: ISOSORBIDE MONONITRATE 30 MG TAB.ER.24H PO SCH (08:14)
[2016-06-13] MEDS: ATENOLOL 25 MG TABLET(TENORMIN) PO SCH (08:15)
[2016-06-13] MEDS: TIMOLOL MALEATE 0.5% OPHTHALMIC DROPS 5 ML OP SCH (08:16)
[2016-06-13] MEDS: BRIMONIDINE TARTRATE 0.2% 5 mL EYE DROPS OP SCH ×3 (08:18→21:19)
[2016-06-13] MEDS: FOSRENOL 1000 MG PO SCH ×3 (08:18→21:20)
[2016-06-13] MEDS: CINACALCET HCL 30 MG TABLET PO SCH (08:19)
[2016-06-13] MEDS: NIFEDIPINE 60 MG TABLET.SA (PROCARDIA XL 60 MG) PO SCH (08:19)
[2016-06-13] MEDS: PANTOPRAZOLE SODIUM 40 MG TAB PO SCH (08:25)
[2016-06-13] MEDS: ENOXAPARIN SODIUM 30 MG/0.3 ML SYRINGE SUBCUT SCH (08:30)
[2016-06-13] MEDS ORDERED: LISINOPRIL 20 MG TABLET PO SCH (09:00)
[2016-06-13] MEDS: INSULIN REGULAR, HUMAN 100 UNITS/ML, 10 ML VIAL (novoLIN R) SUBCUT PRN ×3 (11:23→21:50)
[2016-06-13] MEDS: ALPRAZolam 0.25 MG TABLET PO SCH (21:19)
[2016-06-13] MEDS: LATANOPROST 2.5 ML DROPS (XALATAN) OP SCH (21:20)
[2016-06-14] VITALS (7 sets, daily range): BP systolic 124–157
[2016-06-14] MEDS: INSULIN REGULAR, HUMAN 100 UNITS/ML, 10 ML VIAL (novoLIN R) SUBCUT PRN ×4 (06:01→22:00)
[2016-06-14] MEDS: ATENOLOL 25 MG TABLET(TENORMIN) PO SCH (10:00)
[2016-06-14] MEDS: CLOPIDOGREL BISULFATE 75 MG TABLET PO SCH (10:02)
[2016-06-14] MEDS: ISOSORBIDE MONONITRATE 30 MG TAB.ER.24H PO SCH (10:03)
[2016-06-14] MEDS: amLODIPine BESYLATE 10 MG TABLET PO SCH (10:03)
[2016-06-14] MEDS: CINACALCET HCL 30 MG TABLET PO SCH (10:04)
[2016-06-14] MEDS: PANTOPRAZOLE SODIUM 40 MG TAB PO SCH (10:04)
[2016-06-14] MEDS: ASPIRIN 81 MG TAB.CHEW PO SCH (10:04)
[2016-06-14] MEDS: ENOXAPARIN SODIUM 30 MG/0.3 ML SYRINGE SUBCUT SCH (10:04)
[2016-06-14] MEDS: POLYETHYLENE GLYCOL 3350, 17 GM/ POWD.PACK PO SCH (10:04)
[2016-06-14] MEDS: SEVELAMER HCL 800 MG TABLET PO SCH ×3 (10:04→17:33)
[2016-06-14] MEDS: NIFEDIPINE 60 MG TABLET.SA (PROCARDIA XL 60 MG) PO SCH (10:06)
[2016-06-14] MEDS: FOSRENOL 1000 MG PO SCH ×3 (10:12→21:55)
[2016-06-14] MEDS: BRIMONIDINE TARTRATE 0.2% 5 mL EYE DROPS OP SCH ×3 (10:13→21:53)
[2016-06-14] MEDS: TIMOLOL MALEATE 0.5% OPHTHALMIC DROPS 5 ML OP SCH (10:13)
[2016-06-14] MEDS ORDERED: HEPARIN SODIUM,PORCINE 5000 UNITS/ML VIAL MC ONE (11:00)
[2016-06-14] MEDS: LATANOPROST 2.5 ML DROPS (XALATAN) OP SCH (21:54)
[2016-06-14] MEDS: ALPRAZolam 0.25 MG TABLET PO SCH (21:58)
[2016-06-15] VITALS: BP_SYST 130
[2016-06-15 04:00] VITALS: BP_SYST 158
[2016-06-15] MEDS: INSULIN REGULAR, HUMAN 100 UNITS/ML, 10 ML VIAL (novoLIN R) SUBCUT PRN (06:56)
[2016-06-15 08:12] VITALS: BP_SYST 148
[2016-06-15] MEDS: ASPIRIN 81 MG TAB.CHEW PO SCH (08:27)
[2016-06-15] MEDS: ISOSORBIDE MONONITRATE 30 MG TAB.ER.24H PO SCH (08:28)
[2016-06-15] MEDS: CLOPIDOGREL BISULFATE 75 MG TABLET PO SCH (08:29)
[2016-06-15] MEDS: CINACALCET HCL 30 MG TABLET PO SCH (08:29)
[2016-06-15] MEDS: PANTOPRAZOLE SODIUM 40 MG TAB PO SCH (08:29)
[2016-06-15] MEDS: SEVELAMER HCL 800 MG TABLET PO SCH (08:29)
[2016-06-15] MEDS: ATENOLOL 25 MG TABLET(TENORMIN) PO SCH (08:30)
[2016-06-15] MEDS: ENOXAPARIN SODIUM 30 MG/0.3 ML SYRINGE SUBCUT SCH (08:31)
[2016-06-15] MEDS: amLODIPine BESYLATE 10 MG TABLET PO SCH (08:31)
[2016-06-15] MEDS: POLYETHYLENE GLYCOL 3350, 17 GM/ POWD.PACK PO SCH (08:31)
[2016-06-15] MEDS: FOSRENOL 1000 MG PO SCH (08:32)
[2016-06-15] MEDS: TIMOLOL MALEATE 0.5% OPHTHALMIC DROPS 5 ML OP SCH (08:32)
[2016-06-15] MEDS: BRIMONIDINE TARTRATE 0.2% 5 mL EYE DROPS OP SCH (08:32)
[2016-06-15] MEDS ORDERED: NIFEDIPINE 60 MG TABLET.SA (PROCARDIA XL 60 MG) PO SCH (09:00)
[2016-06-15] MEDS ORDERED: NIFE90TA58 PO (10:13)
[2016-06-15 10:30] VITALS: BP_SYST 159
[2016-06-15 11:00] VITALS: BP_SYST 130
== END 2016-06-15 11:16 | disposition home or self-care (01) | DRG 460 ==
LOC: SED 06:14 → SIC 09:22 → STU 06-13 12:30 → SMU 06-14 18:12
PROVIDERS: ADMIT Internal Medicine Hospice and Palliative Medicine; ATTEND Internal Medicine Hospice and Palliative Medicine
PROC: 5A1D60Z (ICD-10-PCS; principal; 2016-06-12)
DX: I12.0 Hypertensive chronic kidney disease with stage 5 chronic kidney disease or end stage renal disease (principal); E87.3 Alkalosis; N18.6 End stage renal disease; R00.1 Bradycardia, unspecified; E11.22 Type 2 diabetes mellitus with diabetic chronic kidney disease; I25.10 Atherosclerotic heart disease of native coronary artery without angina pectoris; E87.5 Hyperkalemia; D63.1 Anemia in chronic kidney disease; Z79.899 Other long term (current) drug therapy; Z95.5 Presence of coronary angioplasty implant and graft; Z99.2 Dependence on renal dialysis; Z79.4 Long term (current) use of insulin; Z79.82 Long term (current) use of aspirin
CPT/HCPCS: 36415; 71010; 80053; 82962; 83880; 84100-TC; 84132-TC; 84484; 85025; 85610-TC; 85730-TC; 87081; 90935; 90937; 93005; J0360; J1644; J1650; J1815; J2405; J7030; J7050

== ENCOUNTER 2016-08-11 16:03 | Inpatient (IN) | payer MEDICAID ==
[~2016-08-11] VITALS: Ht 139.7 cm; Wt 46.0 kg
[~2016-08-11 16:03] MED LIST changes: +NIFE90TA58 PO; +SEN30 PO
[2016-08-11 16:14] VITALS: BP_SYST 111
[2016-08-11 17:06] LABS: BASOPHILS % (AUTO) 0.1 % (0.0-2.0); EOSINOPHILS # (AUTO) 0.1 K/uL (0.0-0.4); EOSINOPHILS % (AUTO) 0.4 % (0.0-4.0); HEMATOCRIT 26.2 % (36-48); HEMOGLOBIN 8.9 g/dL (12.0-16.0); LYMPHOCYTES # (AUTO) 0.9 K/uL (1.0-5.5); LYMPHOCYTES % (AUTO) 5.8 % (20.5-51.5); MEAN CORPUSCULAR HEMOGLOBIN 36 pg (27-31); MEAN CORPUSCULAR HGB CONC 34 % (32-36); MEAN CORPUSCULAR VOLUME 106 fL (79.0-98.0); MONOCYTES # (AUTO) 0.8 K/uL (0.0-1.0); MONOCYTES % (AUTO) 5.1 % (1.7-9.3); NEUTROPHILS % (AUTO) 88.6 % (40.0-70.0); PLATELET COUNT (AUTO) 209 K/uL (130-430); RED BLOOD CELL COUNT(AUTO) 2.48 MIL/uL (4.2-6.2); RED CELL DISTRIBUTION WIDTH 15.5 % (9.0-15.0); WHITE BLOOD COUNT (AUTO) 15.8 K/uL (4.8-10.8)
[2016-08-11 17:11] LABS: PROTHROMBIN TIME 11.1 SECS (9.5-12.5)
[2016-08-11 17:12] LABS: CALCIUM 8.4 mg/dL (8.4-11.0); CREATININE 4.34 mg/dL (0.55-1.30); POTASSIUM 4.3 mmol/L (3.5-5.1)
[2016-08-11 17:16] LABS: TOTAL BILIRUBIN 0.6 mg/dL (0.0-1.0); TOTAL PROTEIN, SERUM 8.4 g/dL (6.4-8.3)
[2016-08-11 17:28] LABS: ALBUMIN 3.1 g/dL (3.4-4.8)
[2016-08-11] MEDS ORDERED: ACETAMINOPHEN 325 MG TABLET PO ONE (18:45)
[2016-08-11] MEDS ORDERED: PIPERACILLIN/TAZO 3.375 GM in NS 50 ML IV ONE (19:15)
[2016-08-11] MEDS ORDERED: DEXTROSE 50% JECT 50 ML DISP.SYRIN IVP PRN (19:15)
[2016-08-11] MEDS ORDERED: ONDANSETRON HCL 4 MG/2 ML VIAL IVP ONE (20:15)
[2016-08-11] MEDS ORDERED: PIPERACILLIN/TAZOBACTAM 3.375 GM/VIAL (ZOSYN) IV ONE ×2 (20:15→21:20)
[2016-08-11] MEDS ORDERED: HYDROmorphone 1 MG INJ. 1 MG/ML AMPUL IVP ONE (20:15)
[2016-08-11 20:55] VITALS: BP_SYST 114
[2016-08-11] MEDS: BRIMONIDINE TARTRATE 0.2% 5 mL EYE DROPS OP SCH (21:00)
[2016-08-11] MEDS: LATANOPROST 2.5 ML DROPS (XALATAN) OP SCH (21:00)
[2016-08-11] MEDS ORDERED: VANCOMYCIN HCL 1 GM/NS PREMIX 250 ML IV ONE (21:00)
[2016-08-11] MEDS: ALPRAZolam 0.25 MG TABLET PO SCH (21:00)
[2016-08-11] MEDS ORDERED: VANCOMYCIN HCL 1000 MG/VIAL IV ONE (21:21)
[2016-08-11] MEDS: INSULIN REGULAR, HUMAN 100 UNITS/ML, 10 ML VIAL (novoLIN R) SUBCUT PRN (22:27)
[2016-08-11] MEDS ORDERED: HYDR-4037 PO ×2 (23:47)
[2016-08-11] MEDS ORDERED: FOLI-43 PO (23:47)
[2016-08-11] MEDS ORDERED: LANT10002 PO (23:47)
[2016-08-11] MEDS ORDERED: POLY10DR18 LEFT EYE (23:47)
[2016-08-11] MEDS ORDERED: SEVE800T8 PO (23:47)
[2016-08-11] MEDS ORDERED: NIFE90TA48 PO (23:47)
[2016-08-11] MEDS ORDERED: NITSL SL (23:47)
[2016-08-11] MEDS ORDERED: LORA-673 PO (23:47)
[2016-08-12] MEDS ORDERED: PIPERACILLIN/TAZOBACTAM 2.25 GM VIAL IV ONE (00:26)
[2016-08-12] MEDS: PIPERACILLIN/TAZO 2.25G/DEX-IS 50 ML IV SCH ×5 (00:43→23:29)
[2016-08-12 05:52] VITALS: BP_SYST 109
[2016-08-12] MEDS: INSULIN REGULAR, HUMAN 100 UNITS/ML, 10 ML VIAL (novoLIN R) SUBCUT PRN ×2 (06:30→11:32)
[2016-08-12 06:59] LABS: CALCIUM 8.2 mg/dL (8.4-11.0); CREATININE 5.62 mg/dL (0.55-1.30); POTASSIUM 5.1 mmol/L (3.5-5.1); TOTAL BILIRUBIN 0.6 mg/dL (0.0-1.0); TOTAL PROTEIN, SERUM 8.6 g/dL (6.4-8.3)
[2016-08-12 07:02] LABS: HEMATOCRIT 27.1 % (36-48); HEMOGLOBIN 9.4 g/dL (12.0-16.0); MEAN CORPUSCULAR HEMOGLOBIN 37 pg (27-31); MEAN CORPUSCULAR HGB CONC 35 % (32-36); MEAN CORPUSCULAR VOLUME 106 fL (79.0-98.0); PLATELET COUNT (AUTO) 256 K/uL (130-430); RED BLOOD CELL COUNT(AUTO) 2.56 MIL/uL (4.2-6.2); RED CELL DISTRIBUTION WIDTH 15.1 % (9.0-15.0); WHITE BLOOD COUNT (AUTO) 16.3 K/uL (4.8-10.8)
[2016-08-12 07:51] LABS: ATYPICAL LYMPHOCYTES % 0 % (0-0); BAND % (MANUAL) 2 % (0-6); BASOPHILS % (MANUAL) 0 % (0-2); EOSINOPHILS % (MANUAL) 0 % (0-7); LYMPHOCYTES % (MANUAL) 9 % (20-46); MONOCYTES % (MANUAL) 3 % (0-11)
[2016-08-12 07:55] VITALS: BP_SYST 158
[2016-08-12] MEDS ORDERED: CLOPIDOGREL BISULFATE 75 MG TABLET PO SCH (09:00)
[2016-08-12] MEDS ORDERED: amLODIPine BESYLATE 10 MG TABLET PO SCH (09:00)
[2016-08-12] MEDS: ASPIRIN 81 MG TAB.CHEW PO SCH ×2 (09:00→10:55)
[2016-08-12] MEDS: ISOSORBIDE MONONITRATE 30 MG TAB.ER.24H PO SCH (10:54)
[2016-08-12] MEDS: CINACALCET HCL 30 MG TABLET PO SCH (10:54)
[2016-08-12] MEDS: PANTOPRAZOLE SODIUM 40 MG TAB PO SCH (10:54)
[2016-08-12] MEDS: ATENOLOL 25 MG TABLET(TENORMIN) PO SCH (10:56)
[2016-08-12] MEDS: LATANOPROST 2.5 ML DROPS (XALATAN) OP SCH (10:57)
[2016-08-12] MEDS: LISINOPRIL 20 MG TABLET PO SCH (10:57)
[2016-08-12] MEDS: BRIMONIDINE TARTRATE 0.2% 5 mL EYE DROPS OP SCH ×3 (10:58→21:31)
[2016-08-12] MEDS: TIMOLOL MALEATE 0.5% OPHTHALMIC DROPS 5 ML OP SCH (10:58)
[2016-08-12 12:04] VITALS: BP_SYST 166
[2016-08-12] MEDS ORDERED: NITROGLYCERIN 0.4 MG TAB.SUBL SL PRN (16:15)
[2016-08-12 17:00] VITALS: BP_SYST 128
[2016-08-12] MEDS: hydrALAZINE HCL 10 MG TABLET PO SCH (19:00)
[2016-08-12] MEDS ORDERED: DOCU-144 PO (19:15)
[2016-08-12 19:50] VITALS: BP_SYST 152
[2016-08-12] MEDS ORDERED: hydrALAZINE HCL 10 MG TABLET PO SCH (21:00)
[2016-08-12] MEDS ORDERED: DOCUSATE SODIUM 100 MG CAPSULE PO SCH (21:00)
[2016-08-12] MEDS ORDERED: hydrALAZINE HCL 10 MG TABLET PO ONE (21:30)
[2016-08-12] MEDS: ALPRAZolam 0.25 MG TABLET PO SCH (21:30)
[2016-08-12] MEDS: DOCUSATE SODIUM 100 MG CAPSULE PO SCH (21:30)
[2016-08-13 00:08] VITALS: BP_SYST 132
[2016-08-13 04:00] VITALS: BP_SYST 161
[2016-08-13] MEDS: PIPERACILLIN/TAZO 2.25G/DEX-IS 50 ML IV SCH ×3 (05:51→18:26)
[2016-08-13 06:55] LABS: ALBUMIN 2.6 g/dL (3.4-4.8); CALCIUM 8.3 mg/dL (8.4-11.0); CREATININE 7.28 mg/dL (0.55-1.30); POTASSIUM 5.5 mmol/L (3.5-5.1); TOTAL BILIRUBIN 0.6 mg/dL (0.0-1.0)
[2016-08-13 07:03] LABS: BASOPHILS % (AUTO) 0.2 % (0.0-2.0); EOSINOPHILS # (AUTO) 0.2 K/uL (0.0-0.4); MONOCYTES # (AUTO) 0.9 K/uL (0.0-1.0); RED CELL DISTRIBUTION WIDTH 15.3 % (9.0-15.0)
[2016-08-13 07:18] LABS: EOSINOPHILS % (AUTO) 1.7 % (0.0-4.0); HEMATOCRIT 26.2 % (36-48); HEMOGLOBIN 8.8 g/dL (12.0-16.0); LYMPHOCYTES # (AUTO) 1.2 K/uL (1.0-5.5); LYMPHOCYTES % (AUTO) 8.5 % (20.5-51.5); MEAN CORPUSCULAR HEMOGLOBIN 35 pg (27-31); MEAN CORPUSCULAR HGB CONC 34 % (32-36); MEAN CORPUSCULAR VOLUME 103 fL (79.0-98.0); MONOCYTES % (AUTO) 6.4 % (1.7-9.3); NEUTROPHILS # (AUTO) 12.3 K/uL (1.8-7.7); NEUTROPHILS % (AUTO) 83.2 % (40.0-70.0); PLATELET COUNT (AUTO) 230 K/uL (130-430); RED BLOOD CELL COUNT(AUTO) 2.54 MIL/uL (4.2-6.2); WHITE BLOOD COUNT (AUTO) 14.6 K/uL (4.8-10.8)
[2016-08-13 08:00] VITALS: BP_SYST 168
[2016-08-13] MEDS ORDERED: hydrALAZINE HCL 10 MG TABLET PO SCH (09:00)
[2016-08-13] MEDS: ISOSORBIDE MONONITRATE 30 MG TAB.ER.24H PO SCH (10:14)
[2016-08-13] MEDS: DOCUSATE SODIUM 100 MG CAPSULE PO SCH ×3 (10:14→21:00)
[2016-08-13] MEDS: PANTOPRAZOLE SODIUM 40 MG TAB PO SCH (10:15)
[2016-08-13] MEDS: CINACALCET HCL 30 MG TABLET PO SCH (10:15)
[2016-08-13] MEDS: ATENOLOL 25 MG TABLET(TENORMIN) PO SCH (10:15)
[2016-08-13] MEDS: LISINOPRIL 20 MG TABLET PO SCH (10:15)
[2016-08-13] MEDS: BRIMONIDINE TARTRATE 0.2% 5 mL EYE DROPS OP SCH ×3 (10:22→20:59)
[2016-08-13] MEDS ORDERED: cloNIDine HCL 0.1 MG TABLET PO PRN (11:45)
[2016-08-13] MEDS: TIMOLOL MALEATE 0.5% OPHTHALMIC DROPS 5 ML OP SCH (12:18)
[2016-08-13] MEDS: hydrALAZINE HCL 10 MG TABLET PO SCH ×2 (12:19→18:25)
[2016-08-13] MEDS: INSULIN REGULAR, HUMAN 100 UNITS/ML, 10 ML VIAL (novoLIN R) SUBCUT PRN ×2 (12:38→21:10)
[2016-08-13 13:03] VITALS: BP_SYST 157
[2016-08-13] MEDS: guaiFENesin/D-METHORPHAN HB 118 ML SUGAR FREE PO PRN ×2 (14:10→18:26)
[2016-08-13 16:09] VITALS: BP_SYST 140
[2016-08-13 20:15] VITALS: BP_SYST 157
[2016-08-13] MEDS: ALPRAZolam 0.25 MG TABLET PO SCH (21:00)
[2016-08-13] MEDS: LATANOPROST 2.5 ML DROPS (XALATAN) OP SCH (21:00)
[2016-08-14] VITALS (7 sets, daily range): BP systolic 140–188
[2016-08-14] MEDS: PIPERACILLIN/TAZO 2.25G/DEX-IS 50 ML IV SCH ×2 (00:13→06:07)
[2016-08-14] MEDS ORDERED: TUBERCULIN,PURIF.PROT.DERIV. 0.1 ML SYR ID ONE (05:33)
[2016-08-14 06:37] LABS: BASOPHILS % (AUTO) 0.3 % (0.0-2.0); EOSINOPHILS # (AUTO) 0.2 K/uL (0.0-0.4); EOSINOPHILS % (AUTO) 1.7 % (0.0-4.0); HEMOGLOBIN 8.8 g/dL (12.0-16.0); LYMPHOCYTES # (AUTO) 1.5 K/uL (1.0-5.5); LYMPHOCYTES % (AUTO) 12.1 % (20.5-51.5); MEAN CORPUSCULAR HEMOGLOBIN 35 pg (27-31); MEAN CORPUSCULAR HGB CONC 34 % (32-36); MEAN CORPUSCULAR VOLUME 103 fL (79.0-98.0); MONOCYTES % (AUTO) 8.5 % (1.7-9.3); NEUTROPHILS # (AUTO) 9.4 K/uL (1.8-7.7); NEUTROPHILS % (AUTO) 77.4 % (40.0-70.0); PLATELET COUNT (AUTO) 224 K/uL (130-430); RED BLOOD CELL COUNT(AUTO) 2.53 MIL/uL (4.2-6.2); RED CELL DISTRIBUTION WIDTH 14.8 % (9.0-15.0); WHITE BLOOD COUNT (AUTO) 12.1 K/uL (4.8-10.8)
[2016-08-14 06:48] LABS: ALBUMIN 2.5 g/dL (3.4-4.8); CREATININE 5.61 mg/dL (0.55-1.30); TOTAL BILIRUBIN 0.6 mg/dL (0.0-1.0); TOTAL PROTEIN, SERUM 8.1 g/dL (6.4-8.3)
[2016-08-14] MEDS: CINACALCET HCL 30 MG TABLET PO SCH (10:18)
[2016-08-14] MEDS: DOCUSATE SODIUM 100 MG CAPSULE PO SCH ×3 (10:18→21:31)
[2016-08-14] MEDS: ATENOLOL 25 MG TABLET(TENORMIN) PO SCH (10:19)
[2016-08-14] MEDS: hydrALAZINE HCL 10 MG TABLET PO SCH ×2 (10:19→18:11)
[2016-08-14] MEDS: PANTOPRAZOLE SODIUM 40 MG TAB PO SCH (10:20)
[2016-08-14] MEDS: LISINOPRIL 20 MG TABLET PO SCH (10:20)
[2016-08-14] MEDS: ISOSORBIDE MONONITRATE 30 MG TAB.ER.24H PO SCH (10:20)
[2016-08-14] MEDS: BRIMONIDINE TARTRATE 0.2% 5 mL EYE DROPS OP SCH ×3 (10:29→21:30)
[2016-08-14] MEDS: TIMOLOL MALEATE 0.5% OPHTHALMIC DROPS 5 ML OP SCH (10:30)
[2016-08-14] MEDS: guaiFENesin/D-METHORPHAN HB 118 ML SUGAR FREE PO PRN (10:42)
[2016-08-14] MEDS ORDERED: AZITHROMYCIN 500 MG in NS 250 ML IV SCH (11:45)
[2016-08-14] MEDS: INSULIN REGULAR, HUMAN 100 UNITS/ML, 10 ML VIAL (novoLIN R) SUBCUT PRN ×2 (12:09→18:06)
[2016-08-14] MEDS ORDERED: EPOETIN ALFA 10,000 UNITS/ML VIAL SUBCUT SCH (18:00)
[2016-08-14] MEDS: LATANOPROST 2.5 ML DROPS (XALATAN) OP SCH (21:31)
[2016-08-14] MEDS: ALPRAZolam 0.25 MG TABLET PO SCH (21:32)
[2016-08-14] MEDS ORDERED: VANCOMYCIN HCL 500 MG in NS 100 ML IV SCH (22:00)
[2016-08-15] VITALS: BP_SYST 139
[2016-08-15] MEDS ORDERED: LOPERAMIDE HCL 2 MG CAPSULE PO ONE (00:30)
[2016-08-15] MEDS ORDERED: LOPERAMIDE HCL 2 MG CAPSULE PO SCH (00:30)
[2016-08-15] MEDS ORDERED: ONDANSETRON HCL 4 MG/2 ML VIAL IVP PRN (00:45)
[2016-08-15] MEDS ORDERED: MORPHINE 2 MG/ML INJ. SYRINGE IVP SCH (00:45)
[2016-08-15] MEDS ORDERED: MORPHINE 2 MG/ML INJ. SYRINGE IVP ONE (00:45)
[2016-08-15] MEDS: guaiFENesin/D-METHORPHAN HB 118 ML SUGAR FREE PO PRN ×2 (01:51→07:31)
[2016-08-15 03:46] VITALS: BP_SYST 149
[2016-08-15 06:31] LABS: BASOPHILS % (AUTO) 0.2 % (0.0-2.0); EOSINOPHILS # (AUTO) 0.3 K/uL (0.0-0.4); EOSINOPHILS % (AUTO) 2.4 % (0.0-4.0); HEMATOCRIT 27.1 % (36-48); HEMOGLOBIN 8.9 g/dL (12.0-16.0); LYMPHOCYTES # (AUTO) 1.8 K/uL (1.0-5.5); MEAN CORPUSCULAR HEMOGLOBIN 33 pg (27-31); MEAN CORPUSCULAR HGB CONC 33 % (32-36); MEAN CORPUSCULAR VOLUME 101 fL (79.0-98.0); MONOCYTES # (AUTO) 1.1 K/uL (0.0-1.0); MONOCYTES % (AUTO) 9.6 % (1.7-9.3); NEUTROPHILS # (AUTO) 8.6 K/uL (1.8-7.7); NEUTROPHILS % (AUTO) 72.8 % (40.0-70.0); PLATELET COUNT (AUTO) 242 K/uL (130-430); RED BLOOD CELL COUNT(AUTO) 2.68 MIL/uL (4.2-6.2); RED CELL DISTRIBUTION WIDTH 15.2 % (9.0-15.0); WHITE BLOOD COUNT (AUTO) 11.8 K/uL (4.8-10.8)
[2016-08-15 07:08] LABS: ALBUMIN 2.5 g/dL (3.4-4.8); CALCIUM 7.9 mg/dL (8.4-11.0); CREATININE 7.47 mg/dL (0.55-1.30); POTASSIUM 5.1 mmol/L (3.5-5.1); TOTAL BILIRUBIN 0.7 mg/dL (0.0-1.0)
[2016-08-15] MEDS: hydrALAZINE HCL 10 MG TABLET PO SCH (08:55)
[2016-08-15] MEDS: CINACALCET HCL 30 MG TABLET PO SCH (08:55)
[2016-08-15] MEDS: DOCUSATE SODIUM 100 MG CAPSULE PO SCH (08:55)
[2016-08-15] MEDS: LISINOPRIL 20 MG TABLET PO SCH (08:56)
[2016-08-15] MEDS: PANTOPRAZOLE SODIUM 40 MG TAB PO SCH (08:56)
[2016-08-15] MEDS: ATENOLOL 25 MG TABLET(TENORMIN) PO SCH (08:56)
[2016-08-15] MEDS: ISOSORBIDE MONONITRATE 30 MG TAB.ER.24H PO SCH (08:58)
[2016-08-15] MEDS: BRIMONIDINE TARTRATE 0.2% 5 mL EYE DROPS OP SCH (09:06)
[2016-08-15] MEDS: TIMOLOL MALEATE 0.5% OPHTHALMIC DROPS 5 ML OP SCH (09:06)
[2016-08-15 09:15] VITALS: BP_SYST 163
[2016-08-15 09:44] VITALS: BP_SYST 163
== END 2016-08-15 10:05 | disposition home or self-care (01) | DRG 720 ==
LOC: SED 16:03 → SMU 19:07
PROVIDERS: ADMIT Internal Medicine; ATTEND Internal Medicine Hospice and Palliative Medicine
PROC: 5A1D00Z (ICD-10-PCS; principal; 2016-08-13)
DX: A41.9 Sepsis, unspecified organism (principal); J18.9 Pneumonia, unspecified organism; N18.6 End stage renal disease; E11.21 Type 2 diabetes mellitus with diabetic nephropathy; I12.0 Hypertensive chronic kidney disease with stage 5 chronic kidney disease or end stage renal disease; E11.319 Type 2 diabetes mellitus with unspecified diabetic retinopathy without macular edema; Y95 Nosocomial condition; E11.40 Type 2 diabetes mellitus with diabetic neuropathy, unspecified; E11.22 Type 2 diabetes mellitus with diabetic chronic kidney disease; E78.5 Hyperlipidemia, unspecified; K21.9 Gastro-esophageal reflux disease without esophagitis; D63.1 Anemia in chronic kidney disease; I25.10 Atherosclerotic heart disease of native coronary artery without angina pectoris; I50.9 Heart failure, unspecified; E11.51 Type 2 diabetes mellitus with diabetic peripheral angiopathy without gangrene; Z98.61 Coronary angioplasty status; Z99.2 Dependence on renal dialysis; Z95.1 Presence of aortocoronary bypass graft; Z90.710 Acquired absence of both cervix and uterus; Z79.899 Other long term (current) drug therapy
CPT/HCPCS: 36415; 71010; 80053; 82962; 83605; 84484; 85007; 85025; 85027; 85610-TC; 86580; 87040-TC; 87081; 90935; 93005; 96374; 96375; 99285; J0456; J0696; J0885; J1170; J1815; J2405; J2543; J3370; J7030; J7050; J7060

== ENCOUNTER 2018-07-01 06:04 | Inpatient (IN) | payer MEDICAID ==
[~2018-07-01] VITALS: Ht 147.3 cm; Wt 49.9 kg
[~2018-07-01 06:04] MED LIST changes: -ATEN-41 PO; -CLOP75TA2 PO; +COR3.125 PO; +DOCU-144 PO; +FOLI-43 PO; +HYDR-4037 PO; +LANT10002 PO; -LATA2.5D6 OP; +LIP20 PO; +LORA-673 PO; +NIFE90TA48 PO; +NIFE90TA53 PO; -NIFE90TA58 PO; -NOR10 PO; +POLY10DR18 LEFT EYE; +TIMO5DRO15 OP; -TIMO5DRO4 OP; +XALEYE OP
[2018-07-01 06:10] VITALS: BP_SYST 146
[2018-07-01 06:41] LABS: BASOPHILS % (AUTO) 0.6 % (0.0-2.0); EOSINOPHILS # (AUTO) 0.1 K/uL (0.0-0.4); EOSINOPHILS % (AUTO) 0.7 % (0.0-4.0); HEMATOCRIT 37.5 % (36-48); HEMOGLOBIN 11.7 g/dL (12.0-16.0); LYMPHOCYTES # (AUTO) 1.3 K/uL (1.0-5.5); LYMPHOCYTES % (AUTO) 16.7 % (20.5-51.5); MEAN CORPUSCULAR HEMOGLOBIN 32 pg (27-31); MEAN CORPUSCULAR HGB CONC 31 % (32-36); MEAN CORPUSCULAR VOLUME 103 fL (79.0-98.0); MONOCYTES # (AUTO) 0.6 K/uL (0.0-1.0); MONOCYTES % (AUTO) 7.4 % (1.7-9.3); NEUTROPHILS # (AUTO) 5.7 K/uL (1.8-7.7); NEUTROPHILS % (AUTO) 74.6 % (40.0-70.0); PLATELET COUNT (AUTO) 88 K/uL (130-430); RED BLOOD CELL COUNT(AUTO) 3.64 MIL/uL (4.2-6.2); RED CELL DISTRIBUTION WIDTH 21.1 % (9.0-15.0); WHITE BLOOD COUNT (AUTO) 7.6 K/uL (4.8-10.8)
[2018-07-01 06:52] LABS: CALCIUM 7.5 mg/dL (8.4-11.0); CREATININE 5.79 mg/dL (0.55-1.30)
[2018-07-01 06:56] LABS: INR 1.3 (0.8-1.2); PROTHROMBIN TIME 12.9 SECS (9.5-12.5)
[2018-07-01 06:59] LABS: ALBUMIN 3.2 g/dL (3.4-4.8)
[2018-07-01 07:02] LABS: POTASSIUM 6.2 mmol/L (3.5-5.1)
[2018-07-01] MEDS ORDERED: INSULIN REGULAR, HUMAN 10 UNITS/0.1 ML INJ IVP ONE ×2 (07:15)
[2018-07-01] MEDS ORDERED: DEXTROSE 50% JECT 50 ML DISP.SYRIN IVP ONE (07:15)
[2018-07-01] MEDS ORDERED: ASPIRIN 81 MG TAB.CHEW PO ONE (07:15)
[2018-07-01] MEDS ORDERED: NACL 0.9% 1,500 ML IV ONE (07:15)
[2018-07-01] MEDS ORDERED: ATEN-41 PO (07:17)
[2018-07-01] MEDS ORDERED: CLOP300T2 PO (07:17)
[2018-07-01] MEDS ORDERED: FLO44 INH (07:17)
[2018-07-01] MEDS ORDERED: INSU100I26 SQ (07:17)
[2018-07-01] MEDS ORDERED: DORZ10DR20 OP (07:17)
[2018-07-01] MEDS ORDERED: NEPH PO (07:17)
[2018-07-01 08:34] VITALS: BP_SYST 144
[2018-07-01] MEDS ORDERED: D5W 1,000 ML IV PRN (09:37)
[2018-07-01] MEDS ORDERED: LORazepam 2 MG/ML VIAL IVP PRN (09:45)
[2018-07-01] MEDS ORDERED: ACETAMINOPHEN 325 MG TABLET PO PRN (09:45)
[2018-07-01] MEDS ORDERED: DEXTROSE 50% JECT 50 ML DISP.SYRIN IVP PRN (09:45)
[2018-07-01] MEDS ORDERED: ONDANSETRON HCL 4 MG/2 ML VIAL IVP PRN (09:45)
[2018-07-01] MEDS ORDERED: GLUCOSE 15 GM GEL (in 37.5 GM TUBE) PO PRN (09:45)
[2018-07-01] MEDS ORDERED: NON-FORMULARY MEDICATION (Cholecalciferol (Vitamin D3) (Vitamin D) 50,000 UNIT) PO SCH (09:45)
[2018-07-01] MEDS ORDERED: NITROGLYCERIN 0.4 MG TAB.SUBL SL PRN (09:45)
[2018-07-01] MEDS ORDERED: HYDROcodone/ACETAMIN 10-325 MG TAB PO PRN (09:45)
[2018-07-01] MEDS ORDERED: HYDROcodone/ACETAMIN 5-325 MG TAB (NORCO/ VICODIN) PO PRN (09:45)
[2018-07-01] MEDS ORDERED: REN800 PO (10:57)
[2018-07-01] MEDS ORDERED: LANT10005 PO (10:57)
[2018-07-01] MEDS ORDERED: GABA-529 PO (10:57)
[2018-07-01 11:25] VITALS: BP_SYST 130
[2018-07-01] MEDS ORDERED: NORMAL SALINE 5 ML DISP.SYRIN IVF SCH (14:00)
[2018-07-01] MEDS: NORMAL SALINE 5 ML DISP.SYRIN IVF SCH ×2 (14:38→22:00)
[2018-07-01] MEDS: DORZOLAMIDE 2% OPHTHALMIC SOLN 5ML OP SCH ×2 (14:39→21:28)
[2018-07-01] MEDS: BRIMONIDINE TARTRATE 0.2% 5 mL EYE DROPS OP SCH ×2 (14:40→21:28)
[2018-07-01] MEDS: FLUTICASONE 44 mcg/ACTUATION MDI AER.W.ADAP INH SCH ×2 (14:40→21:00)
[2018-07-01] MEDS: TIMOLOL MALEATE 0.5% OPHTHALMIC DROPS 5 ML OP SCH ×2 (14:40→21:28)
[2018-07-01 15:14] VITALS: BP_SYST 145
[2018-07-01 20:19] VITALS: BP_SYST 147
[2018-07-01] MEDS: CARVEDILOL 3.125 MG TABLET (COREG) PO SCH (21:00)
[2018-07-01] MEDS: ALPRAZolam 0.25 MG TABLET PO SCH (21:27)
[2018-07-01] MEDS: DOCUSATE SODIUM 100 MG CAPSULE PO SCH (21:27)
[2018-07-01] MEDS: ATORVASTATIN 20 MG TABLET PO SCH (21:28)
[2018-07-01] MEDS: LATANOPROST 2.5 ML DROPS (XALATAN) OP SCH (21:28)
[2018-07-01] MEDS: INSULIN REGULAR, HUMAN 100 UNITS/ML, 10 ML VIAL (novoLIN R) SUBCUT PRN (21:30)
[2018-07-02] MEDS: NORMAL SALINE 5 ML DISP.SYRIN IVF SCH ×3 (06:30→20:28)
[2018-07-02 06:31] LABS: BASOPHILS % (AUTO) 0.4 % (0.0-2.0); EOSINOPHILS # (AUTO) 0.1 K/uL (0.0-0.4); EOSINOPHILS % (AUTO) 1.6 % (0.0-4.0); HEMATOCRIT 37.3 % (36-48); HEMOGLOBIN 11.9 g/dL (12.0-16.0); LYMPHOCYTES # (AUTO) 1.2 K/uL (1.0-5.5); LYMPHOCYTES % (AUTO) 15.6 % (20.5-51.5); MEAN CORPUSCULAR HEMOGLOBIN 32 pg (27-31); MEAN CORPUSCULAR HGB CONC 32 % (32-36); MEAN CORPUSCULAR VOLUME 101 fL (79.0-98.0); MONOCYTES # (AUTO) 0.7 K/uL (0.0-1.0); MONOCYTES % (AUTO) 9.2 % (1.7-9.3); NEUTROPHILS # (AUTO) 5.7 K/uL (1.8-7.7); NEUTROPHILS % (AUTO) 73.2 % (40.0-70.0); PLATELET COUNT (AUTO) 109 K/uL (130-430); RED BLOOD CELL COUNT(AUTO) 3.71 MIL/uL (4.2-6.2); RED CELL DISTRIBUTION WIDTH 20.7 % (9.0-15.0); WHITE BLOOD COUNT (AUTO) 7.8 K/uL (4.8-10.8)
[2018-07-02] MEDS: FLUTICASONE 44 mcg/ACTUATION MDI AER.W.ADAP INH SCH ×3 (06:31→20:17)
[2018-07-02] MEDS: INSULIN REGULAR, HUMAN 100 UNITS/ML, 10 ML VIAL (novoLIN R) SUBCUT PRN ×3 (06:31→20:33)
[2018-07-02 06:48] LABS: CREATININE 3.6 mg/dL (0.55-1.30); POTASSIUM 3.7 mmol/L (3.5-5.1)
[2018-07-02 06:59] LABS: PHOSPHORUS 2.8 mg/dL (2.7-4.5)
[2018-07-02 08:03] VITALS: BP_SYST 145
[2018-07-02] MEDS: INSULIN GLARGINE 100 UNITS/ML 10 ML VIAL SQ SCH (09:00)
[2018-07-02] MEDS: NEPHROVITE, (FOLIC ACID/VITAMIN B COMP W-C 1 TAB) PO SCH (09:10)
[2018-07-02] MEDS: ASPIRIN 81 MG TAB.CHEW PO SCH (09:10)
[2018-07-02] MEDS: CINACALCET HCL 30 MG TABLET PO SCH (09:10)
[2018-07-02] MEDS: DOCUSATE SODIUM 100 MG CAPSULE PO SCH ×2 (09:10→20:15)
[2018-07-02] MEDS: ISOSORBIDE MONONITRATE 30 MG TAB.ER.24H PO SCH (09:11)
[2018-07-02] MEDS: PANTOPRAZOLE SODIUM 40 MG TAB PO SCH (09:11)
[2018-07-02] MEDS: CLOPIDOGREL BISULFATE 75 MG TABLET PO SCH (09:11)
[2018-07-02] MEDS: FOLIC ACID 1 MG TABLET PO SCH (09:12)
[2018-07-02] MEDS: BRIMONIDINE TARTRATE 0.2% 5 mL EYE DROPS OP SCH ×3 (09:12→20:16)
[2018-07-02] MEDS: LISINOPRIL 20 MG TABLET PO SCH (09:12)
[2018-07-02] MEDS: LORATADINE 10 MG TABLET PO SCH (09:12)
[2018-07-02] MEDS: NIFEDIPINE 30 MG TAB.ER.24 PO SCH (09:12)
[2018-07-02] MEDS: TIMOLOL MALEATE 0.5% OPHTHALMIC DROPS 5 ML OP SCH ×3 (09:13→20:16)
[2018-07-02] MEDS: DORZOLAMIDE 2% OPHTHALMIC SOLN 5ML OP SCH ×3 (09:13→20:16)
[2018-07-02] MEDS: CARVEDILOL 3.125 MG TABLET (COREG) PO SCH ×2 (09:56→20:14)
[2018-07-02] MEDS: ATENOLOL 25 MG TABLET(TENORMIN) PO SCH (09:56)
[2018-07-02 12:42] VITALS: BP_SYST 139
[2018-07-02 15:11] VITALS: BP_SYST 130
[2018-07-02 20:00] VITALS: BP_SYST 103
[2018-07-02] MEDS: ALPRAZolam 0.25 MG TABLET PO SCH (20:13)
[2018-07-02] MEDS: ATORVASTATIN 20 MG TABLET PO SCH (20:14)
[2018-07-02] MEDS: LATANOPROST 2.5 ML DROPS (XALATAN) OP SCH (20:15)
[2018-07-03 01:21] VITALS: BP_SYST 99
[2018-07-03] MEDS: FLUTICASONE 44 mcg/ACTUATION MDI AER.W.ADAP INH SCH (05:55)
[2018-07-03] MEDS: NORMAL SALINE 5 ML DISP.SYRIN IVF SCH (05:55)
[2018-07-03] MEDS: INSULIN REGULAR, HUMAN 100 UNITS/ML, 10 ML VIAL (novoLIN R) SUBCUT PRN ×2 (05:58→11:39)
[2018-07-03 06:26] LABS: BASOPHILS % (AUTO) 0.7 % (0.0-2.0); EOSINOPHILS # (AUTO) 0.1 K/uL (0.0-0.4); EOSINOPHILS % (AUTO) 1.4 % (0.0-4.0); HEMATOCRIT 32.9 % (36-48); HEMOGLOBIN 10.5 g/dL (12.0-16.0); LYMPHOCYTES # (AUTO) 1.6 K/uL (1.0-5.5); LYMPHOCYTES % (AUTO) 23.2 % (20.5-51.5); MEAN CORPUSCULAR HEMOGLOBIN 32 pg (27-31); MEAN CORPUSCULAR HGB CONC 32 % (32-36); MEAN CORPUSCULAR VOLUME 101 fL (79.0-98.0); MONOCYTES # (AUTO) 0.6 K/uL (0.0-1.0); MONOCYTES % (AUTO) 9.5 % (1.7-9.3); NEUTROPHILS # (AUTO) 4.4 K/uL (1.8-7.7); NEUTROPHILS % (AUTO) 65.2 % (40.0-70.0); PLATELET COUNT (AUTO) 103 K/uL (130-430); RED BLOOD CELL COUNT(AUTO) 3.25 MIL/uL (4.2-6.2); RED CELL DISTRIBUTION WIDTH 20.7 % (9.0-15.0); WHITE BLOOD COUNT (AUTO) 6.7 K/uL (4.8-10.8)
[2018-07-03 07:06] LABS: CREATININE 5.26 mg/dL (0.55-1.30); PHOSPHORUS 3.6 mg/dL (2.7-4.5); POTASSIUM 4.6 mmol/L (3.5-5.1)
[2018-07-03 07:14] LABS: HEPATITIS A AB, IgM Negative (Negative); HEPATITIS B CORE AB, IgM Negative (Negative); HEPATITIS B SURFACE AG Negative (Negative)
[2018-07-03 08:01] VITALS: BP_SYST 112
[2018-07-03] MEDS: NIFEDIPINE 30 MG TAB.ER.24 PO SCH (09:00)
[2018-07-03] MEDS: LISINOPRIL 20 MG TABLET PO SCH (09:00)
[2018-07-03] MEDS: CARVEDILOL 3.125 MG TABLET (COREG) PO SCH (09:00)
[2018-07-03] MEDS: INSULIN GLARGINE 100 UNITS/ML 10 ML VIAL SQ SCH (09:00)
[2018-07-03] MEDS: ATENOLOL 25 MG TABLET(TENORMIN) PO SCH (09:00)
[2018-07-03] MEDS: DOCUSATE SODIUM 100 MG CAPSULE PO SCH (09:42)
[2018-07-03] MEDS: ISOSORBIDE MONONITRATE 30 MG TAB.ER.24H PO SCH (09:42)
[2018-07-03] MEDS: PANTOPRAZOLE SODIUM 40 MG TAB PO SCH (09:42)
[2018-07-03] MEDS: FOLIC ACID 1 MG TABLET PO SCH (09:42)
[2018-07-03] MEDS: CINACALCET HCL 30 MG TABLET PO SCH (09:42)
[2018-07-03] MEDS: LORATADINE 10 MG TABLET PO SCH (09:42)
[2018-07-03] MEDS: CLOPIDOGREL BISULFATE 75 MG TABLET PO SCH (09:42)
[2018-07-03] MEDS: NEPHROVITE, (FOLIC ACID/VITAMIN B COMP W-C 1 TAB) PO SCH (09:42)
[2018-07-03] MEDS: ASPIRIN 81 MG TAB.CHEW PO SCH (09:42)
[2018-07-03] MEDS: BRIMONIDINE TARTRATE 0.2% 5 mL EYE DROPS OP SCH (09:43)
[2018-07-03] MEDS: TIMOLOL MALEATE 0.5% OPHTHALMIC DROPS 5 ML OP SCH (09:43)
[2018-07-03] MEDS: DORZOLAMIDE 2% OPHTHALMIC SOLN 5ML OP SCH (09:43)
[2018-07-03 11:29] VITALS: BP_SYST 120
[2018-07-03 14:09] VITALS: BP_SYST 135
[2018-07-03 14:57] VITALS: BP_SYST 135
== END 2018-07-03 15:00 | disposition home or self-care (01) | DRG 190 ==
LOC: SED 06:04 → STU 07:19
PROVIDERS: ADMIT Preventive Medicine Preventive Medicine/Occupational Environmental Medicine; ATTEND Preventive Medicine Preventive Medicine/Occupational Environmental Medicine
PROC: 5A1D70Z Performance of Urinary Filtration, Intermittent, Less than 6 Hours Per Day (ICD-10-PCS; principal; 2018-07-01)
PROC: 5A1D70Z Performance of Urinary Filtration, Intermittent, Less than 6 Hours Per Day (ICD-10-PCS; 2018-07-03)
DX: I21.4 Non-ST elevation (NSTEMI) myocardial infarction (principal); I13.2 Hypertensive heart and chronic kidney disease with heart failure and with stage 5 chronic kidney disease, or end stage renal disease; D69.6 Thrombocytopenia, unspecified; E11.21 Type 2 diabetes mellitus with diabetic nephropathy; N18.6 End stage renal disease; E11.22 Type 2 diabetes mellitus with diabetic chronic kidney disease; E11.40 Type 2 diabetes mellitus with diabetic neuropathy, unspecified; I25.10 Atherosclerotic heart disease of native coronary artery without angina pectoris; I44.7 Left bundle-branch block, unspecified; E11.319 Type 2 diabetes mellitus with unspecified diabetic retinopathy without macular edema; E11.51 Type 2 diabetes mellitus with diabetic peripheral angiopathy without gangrene; E11.65 Type 2 diabetes mellitus with hyperglycemia; E83.51 Hypocalcemia; E78.5 Hyperlipidemia, unspecified; E87.1 Hypo-osmolality and hyponatremia; D63.8 Anemia in other chronic diseases classified elsewhere; E83.52 Hypercalcemia; E87.5 Hyperkalemia; I27.20 Pulmonary hypertension, unspecified; I42.9 Cardiomyopathy, unspecified; I50.9 Heart failure, unspecified; J32.2 Chronic ethmoidal sinusitis; J32.3 Chronic sphenoidal sinusitis; J32.0 Chronic maxillary sinusitis; I08.1 Rheumatic disorders of both mitral and tricuspid valves; Z99.2 Dependence on renal dialysis; Z79.899 Other long term (current) drug therapy; Z79.82 Long term (current) use of aspirin
CPT/HCPCS: 36415; 70450-TC; 70551; 71045; 80048; 80053; 80074; 82962; 83605; 83735-TC; 83880; 84100-TC; 84484; 85025; 85610-TC; 85730-TC; 87040-TC; 87081; 90935; 90937; 93005; 93306; 93880; 96361; 96374; 96375; 99285; G0378; J1815; J7030; J7040

== ENCOUNTER 2018-08-16 09:15 | Inpatient (IN) | payer MEDICAID ==
[~2018-08-16] VITALS: Ht 152.4 cm; Wt 51.9 kg
[2018-08-16 09:15] VITALS: BP_SYST 151
[~2018-08-16 09:15] MED LIST changes: +ATEN-41 PO; +CLOP300T2 PO; +DORZ10DR20 OP; +FLO44 INH; +GABA-529 PO; -HYDR-4037 PO; +INSU100I26 SQ; -INSU100V11 SQ; -LANT10002 PO; +LANT10005 PO; +NEPH PO; -NIFE90TA48 PO; -POLY10DR18 LEFT EYE; +REN800 PO; -SEVE800T8 PO; -[UNRECOGNIZED DRUG - CODE] PO
--- NOTE | 2018-08-16 09:15 | NUR ---
Placed in room 7 . Placed on library monitor, blood pressure machine and pulse oximeter. To gown for exam. Side rails up. Assumed care.
--- NOTE | 2018-08-16 09:15 | NUR ---
Patient arrived via POV with family, AAOx4, and ambulatory with slow gait. Patient arrived with multiple complaints. Patient completed dialysis today, removal of 2.4L, she has been on x4 dialysis x5 weeks. Bilateral lower extremity swelling persists. Patient has wounds to right arm, right hand, wounds to bilateral heels, bruising noted to left medial breast. Patient has ortho shoe to right foot. Patients justice of the peace is Dr. Dolores mayo. Patient resting comfortably, placed in gown and on heart monitor. Will continue to follow up and monitor.
--- NOTE | 2018-08-16 09:42 | NUR ---
XR at bedside for exam. Will follow up regarding results.
--- NOTE | 2018-08-16 10:11 | NUR ---
ER at bedside examining patient.
[2018-08-16] MEDS ORDERED: cefTRIAXone 1 GM in D5W 50 ML IV ONE (10:30)
--- NOTE | 2018-08-16 10:35 | NUR ---
Lab at bedside for blood draw. Will follow up regarding results.
[2018-08-16 10:37] LABS: BASOPHILS % (AUTO) 0.5 % (0.0-2.0); EOSINOPHILS # (AUTO) 0.1 K/uL (0.0-0.4); EOSINOPHILS % (AUTO) 2.3 % (0.0-4.0); HEMATOCRIT 32.8 % (36-48); HEMOGLOBIN 10.3 g/dL (12.0-16.0); LYMPHOCYTES # (AUTO) 0.9 K/uL (1.0-5.5); MEAN CORPUSCULAR HEMOGLOBIN 31 pg (27-31); MEAN CORPUSCULAR HGB CONC 31 % (32-36); MEAN CORPUSCULAR VOLUME 100 fL (79.0-98.0); MONOCYTES # (AUTO) 0.5 K/uL (0.0-1.0); NEUTROPHILS # (AUTO) 4.3 K/uL (1.8-7.7); NEUTROPHILS % (AUTO) 74.2 % (40.0-70.0); PLATELET COUNT (AUTO) 103 K/uL (130-430); RED BLOOD CELL COUNT(AUTO) 3.27 MIL/uL (4.2-6.2); RED CELL DISTRIBUTION WIDTH 18.8 % (9.0-15.0); WHITE BLOOD COUNT (AUTO) 5.8 K/uL (4.8-10.8)
[2018-08-16] MEDS ORDERED: cefTRIAXone 1 GM VIAL ONE (10:48)
[2018-08-16 10:50] LABS: CREATININE 2.15 mg/dL (0.55-1.30); POTASSIUM 3.5 mmol/L (3.5-5.1)
[2018-08-16 10:52] LABS: INR 1.1 (0.8-1.2); PROTHROMBIN TIME 11.4 SECS (9.5-12.5)
[2018-08-16 10:59] LABS: TOTAL BILIRUBIN 0.9 mg/dL (0.0-1.0)
--- NOTE | 2018-08-16 11:02 | NUR ---
# 22 gauge angiocath placed to LAC. Use of asceptic technique. Opsite placed over site. Blood return noted. Flushed with 10 cc of normal saline. No evidence of infiltration noted. Patient tolerated well. Confirmed draw for blood cultures prior to be beginning IV antibiotics.
--- NOTE | 2018-08-16 12:04 | NUR ---
Patient resting comfortably, needs are met at this time. Awaiting results of exams, labs. MD to speak with patient regarding plan of care.
--- NOTE | 2018-08-16 13:40 | NUR ---
Patient ambulatory to restroom for BM. Patient walks with steady but slow gait. Patient resting comfortably, needs are met at this time. Will continue to follow up and monitor.
--- NOTE | 2018-08-16 14:06 | NUR ---
Medication reconciliation completed with information provided by patient family member list of medications, copy placed in chart. Any prior medication reconciliation on file was reviewed and corrected.
--- NOTE | 2018-08-16 14:09 | NUR ---
Report given to MICAELA Mohamud.
--- NOTE | 2018-08-16 16:05 | NUR ---
Patient will be admitted [facility]. Admitted to Medsurg unit. Will go to room 118A. Summary report printed. Report will be given at bedside.
--- NOTE | 2018-08-16 16:07 | NUR ---
ADMISSION NOTE Received patient from ER via aletha, received report from Roddy HINOJOSA. Patient admitted with diagnosis of Abdominal pain. Patient oriented to hospital routine, call light, toileting and safety-patient verbalized understanding.
[2018-08-16 16:33] VITALS: BP_SYST 167
--- NOTE | 2018-08-16 17:45 | NUR ---
CONSULTATION ORDER BY DR ALCANTARA FOR CONSULT DR Rebel WILLIAMSON FOR CONSULT OF ABDOMINAL PAIN SPOKE WITH ZEHRA
--- NOTE | 2018-08-16 19:20 | NUR ---
closing notes pt was c/o pain on the lower extremities and got an order for pain. at bedside. no sob noted.
[2018-08-16] MEDS ORDERED: DEXTROSE 50% JECT 50 ML DISP.SYRIN IVP PRN (19:30)
[2018-08-16] MEDS ORDERED: [UNRECOGNIZED DRUG - OTHER] SQ SCH (19:45)
[2018-08-16] MEDS ORDERED: INSULIN GLARGINE HUM REC ANLOG 12 UNIT SQ SCH (19:45)
[2018-08-16] MEDS ORDERED: MORPHINE 2 MG/ML INJ. SYRINGE IVP PRN (19:45)
[2018-08-16] MEDS ORDERED: ASPIRIN 81 MG TAB.CHEW PO SCH (20:00)
[2018-08-16] MEDS: TIMOLOL MALEATE 0.5% OPHTHALMIC DROPS 5 ML OP SCH (21:00)
[2018-08-16] MEDS ORDERED: LANTHANUM CARBONATE 2000 MG PO SCH (21:00)
[2018-08-16] MEDS: LATANOPROST 2.5 ML DROPS (XALATAN) OP SCH (21:00)
[2018-08-16] MEDS: BRIMONIDINE TARTRATE 0.2% 5 mL EYE DROPS OP SCH (21:00)
[2018-08-16 21:25] VITALS: BP_SYST 134
[2018-08-16] MEDS: DOCUSATE SODIUM 100 MG CAPSULE PO SCH (22:23)
[2018-08-16] MEDS: ATORVASTATIN 20 MG TABLET PO SCH (22:24)
[2018-08-16] MEDS: ALPRAZolam 0.25 MG TABLET PO SCH (22:24)
[2018-08-16] MEDS: SEVELAMER HCL 800 MG TABLET PO SCH (22:26)
[2018-08-16] MEDS: CARVEDILOL 3.125 MG TABLET (COREG) PO SCH (22:27)
[2018-08-16] MEDS: FUROSEMIDE 40 MG/4 ML VIAL IVP SCH (22:28)
[2018-08-16] MEDS: INSULIN REGULAR, HUMAN 100 UNITS/ML, 10 ML VIAL (humuLIN R) SUBCUT PRN (23:41)
--- NOTE | 2018-08-17 | NUR ---
right arm av shunt PATIENT DOES HEMODIALYSIS M W F , CONSULT WITH MD is pending patient alert & aware .
--- NOTE | 2018-08-17 01:05 | NUR ---
Cardio Consultation Paged Reason for consultation: CHF Was consult called: Yes Person who was notified: Ricarda Consulting Physician: Dr Sin Recruiting And Selection Consultant Specialty: Estimate Clerk Ordered By: Dr Wilson
[2018-08-17] MEDS ORDERED: INSULIN GLARGINE 100 UNITS/ML 10 ML VIAL SUBCUT SCH (02:00)
[2018-08-17 03:02] VITALS: BP_SYST 114; BP_SYST 156
--- NOTE | 2018-08-17 04:39 | NUR ---
HOURLY ROUNDING Patient awake assist for position change verbally indicative FALL MEASURES implemented & effective .
[2018-08-17] MEDS: PANTOPRAZOLE SODIUM 40 MG TAB PO SCH (06:46)
[2018-08-17] MEDS: INSULIN REGULAR, HUMAN 100 UNITS/ML, 10 ML VIAL (humuLIN R) SUBCUT PRN ×3 (06:48→23:32)
[2018-08-17 07:16] LABS: BASOPHILS % (AUTO) 0.3 % (0.0-2.0); EOSINOPHILS % (AUTO) 0.7 % (0.0-4.0); HEMATOCRIT 32.6 % (36-48); HEMOGLOBIN 10.2 g/dL (12.0-16.0); LYMPHOCYTES # (AUTO) 1.2 K/uL (1.0-5.5); LYMPHOCYTES % (AUTO) 17.8 % (20.5-51.5); MEAN CORPUSCULAR HEMOGLOBIN 32 pg (27-31); MEAN CORPUSCULAR HGB CONC 31 % (32-36); MEAN CORPUSCULAR VOLUME 101 fL (79.0-98.0); MONOCYTES # (AUTO) 0.6 K/uL (0.0-1.0); MONOCYTES % (AUTO) 8.7 % (1.7-9.3); NEUTROPHILS # (AUTO) 4.7 K/uL (1.8-7.7); NEUTROPHILS % (AUTO) 72.5 % (40.0-70.0); PLATELET COUNT (AUTO) 93 K/uL (130-430); RED BLOOD CELL COUNT(AUTO) 3.23 MIL/uL (4.2-6.2); RED CELL DISTRIBUTION WIDTH 19.2 % (9.0-15.0); WHITE BLOOD COUNT (AUTO) 6.5 K/uL (4.8-10.8)
[2018-08-17 07:39] LABS: ALBUMIN 2.9 g/dL (3.4-4.8); CALCIUM 9.6 mg/dL (8.4-11.0); CREATININE 3.58 mg/dL (0.55-1.30); POTASSIUM 4.2 mmol/L (3.5-5.1); TOTAL BILIRUBIN 0.9 mg/dL (0.0-1.0)
--- NOTE | 2018-08-17 07:50 | NUR ---
Opening Note Report received from [facility] shift nurse. Patient is awake and oriented. Is c/o abd pressure and LE pain. Patient has generalized edema. IV is on the LAC 22g, SL. Consult with Dr. Figueroa and Merrick are pending for today. Will continue to monitor.
[2018-08-17 08:00] VITALS: BP_SYST 158
--- NOTE | 2018-08-17 08:10 | NUR ---
MD Rounds Dr. Figueroa is examining the patient at the bedside.
[2018-08-17] MEDS: ASPIRIN 81 MG TAB.CHEW PO SCH (08:56)
[2018-08-17] MEDS: ISOSORBIDE MONONITRATE 30 MG TAB.ER.24H PO SCH (08:56)
[2018-08-17] MEDS: CARVEDILOL 3.125 MG TABLET (COREG) PO SCH (08:57)
[2018-08-17] MEDS: DOCUSATE SODIUM 100 MG CAPSULE PO SCH ×2 (08:57→20:22)
[2018-08-17] MEDS: FOLIC ACID 1 MG TABLET PO SCH (08:58)
[2018-08-17] MEDS: LISINOPRIL 20 MG TABLET PO SCH (08:58)
[2018-08-17] MEDS: CINACALCET HCL 30 MG TABLET PO SCH (08:58)
[2018-08-17] MEDS: SEVELAMER HCL 800 MG TABLET PO SCH ×3 (08:58→20:21)
[2018-08-17] MEDS: FUROSEMIDE 40 MG/4 ML VIAL IVP SCH ×2 (08:59→22:39)
[2018-08-17] MEDS: TIMOLOL MALEATE 0.5% OPHTHALMIC DROPS 5 ML OP SCH ×3 (09:00→22:44)
[2018-08-17] MEDS: BRIMONIDINE TARTRATE 0.2% 5 mL EYE DROPS OP SCH ×3 (09:00→22:46)
[2018-08-17] MEDS ORDERED: ISOSORBIDE MONONITRATE 20 MG TABLET (ISMO) PO SCH (09:00)
[2018-08-17] MEDS ORDERED: ATENOLOL 25 MG TABLET(TENORMIN) PO SCH (09:00)
[2018-08-17] MEDS: DORZOLAMIDE 2% OPHTHALMIC SOLN 5ML OP SCH ×3 (09:00→22:44)
[2018-08-17] MEDS: LORATADINE 10 MG TABLET PO SCH (09:08)
--- NOTE | 2018-08-17 10:15 | NUR ---
Rounds Dr. Sin is examining the patient at the bedside. The patient;s daughter was called and asked to bring the most current medications that the patient is on.
--- NOTE | 2018-08-17 10:49 | NUR ---
Nutrition Update Neil Scale 18 noted. Pt admitted for abd pain. Diet: regular, CCHO low carb-45 gm, renal BMI: 23.3 kg/m2 RD to follow per nutrition care standards.
[2018-08-17] MEDS: cefTRIAXone 1 GM IVPB PREMIX 50 ML IV SCH (11:23)
[2018-08-17 12:00] VITALS: BP_SYST 113
--- NOTE | 2018-08-17 12:34 | NUR ---
Rounds Patient is currently having lunch in bed. Call light is within reach.
--- NOTE | 2018-08-17 14:38 | NUR ---
Rounds Patient is sleeping in bed. Consult with Dr. Sanford is pending for today.
--- NOTE | 2018-08-17 15:39 | NUR ---
Called Called Dr. Sanford exchanges, spoke with Alena. Dr. Mcclelland is covering for today. Currently waiting for a call back.
[2018-08-17 15:55] VITALS: BP_SYST 145
[2018-08-17] MEDS ORDERED: NIFE-2 PO (18:21)
--- NOTE | 2018-08-17 18:49 | NUR ---
Closing Note Updated patient's med recon. Daughter is at the bedside. Patient is due for HD tonight. Patient continues to have generalized edema. Call light is within reach and bed is in the lowest position. Will endorse care to the oncoming nurse.
--- NOTE | 2018-08-17 19:20 | NUR ---
OPENING NOTES Pt and endorsement received from day shift nurse. Pt is AAOx3 and lying in bed. Daughter at bedside. Pt on saline lock on left AC G22. Dialysis nurse in the room to start pt's dialysis. No complains of pain or discomfort at this time. No signs of acute distress or SOB noted. Encouraged to use call light when needed. Safety precautions in place with 3 side rails up, wheels locked, bed alarm on and in lowest position. Call light with pt. Will continue to monitor.
[2018-08-17 20:14] VITALS: BP_SYST 131
[2018-08-17] MEDS: ATORVASTATIN 20 MG TABLET PO SCH (20:22)
[2018-08-17] MEDS: ALPRAZolam 0.25 MG TABLET PO SCH (20:22)
[2018-08-17] MEDS: INSULIN GLARGINE 100 UNITS/ML 10 ML VIAL SUBCUT SCH ×2 (20:35→20:38)
--- NOTE | 2018-08-17 20:38 | NUR ---
LANTUS REFUSED Checked pt's FS blood glucose and is 160mg/dL. Pt's scheduled Lantus 12 units refused by pt and daughter. Daughter states that her mother's doctor said not to take insulin if blood glucose is less than 200md/dL because her mother's blood sugar will go too low. Will continue to monitor.
[2018-08-17] MEDS: LATANOPROST 2.5 ML DROPS (XALATAN) OP SCH (20:51)
--- NOTE | 2018-08-17 20:52 | NUR ---
PAGED: Paged Dr. Acuna for orders. Spoke with Hallie
--- NOTE | 2018-08-17 21:13 | NUR ---
SPOKE TO DR. CAREY Spoke to Dr. Carey regarding pt complaining of nausea when she takes Morphine for pain. Dr. Carey ordered Zofran 4mg IVP Q6 PRN for nausea and vomiting. Read back order and will carry out.
[2018-08-17] MEDS ORDERED: ONDANSETRON HCL 4 MG/2 ML VIAL IVP PRN (21:15)
--- NOTE | 2018-08-17 22:10 | NUR ---
DIALYSIS DONE Pt finished dialysis. Dialysis Nurse said 3L out. Will continue to monitor.
[2018-08-17] MEDS: CARVEDILOL 6.25 MG TABLET (COREG) PO SCH (22:38)
--- NOTE | 2018-08-17 23:31 | NUR ---
FS BLOOD GLUCOSE Pt's FS blood glucose is 92mg/dL. No insulin coverage given per protocol. No complains of pain and no signs of acute distress noted. Safety precautions in place and call light with pt. Will continue to monitor.
[2018-08-18 01:12] VITALS: BP_SYST 125
--- NOTE | 2018-08-18 03:10 | NUR ---
ROUNDS Pt is resting in bed with both eyes closed, with visible chest rise and fall with unlabored breathing noted. Pt is easily arousable. No complains of pain and no signs of acute distress noted. Safety precautions in place and call light with pt. Will continue to monitor.
[2018-08-18] MEDS: INSULIN REGULAR, HUMAN 100 UNITS/ML, 10 ML VIAL (humuLIN R) SUBCUT PRN ×2 (05:46→17:09)
--- NOTE | 2018-08-18 05:46 | NUR ---
FS BLOOD GLUCOSE Pt's FS blood glucose is 184mg/dL. Pt agreed to have her insulin. Regular insulin 2 units SQ given per protocol. Will continue to monitor.
[2018-08-18] MEDS: PANTOPRAZOLE SODIUM 40 MG TAB PO SCH (06:00)
--- NOTE | 2018-08-18 06:20 | NUR ---
CLOSING NOTES Pt is resting in bed with both eyes closed, with visible chest rise and fall with unlabored breathing noted. No complains of pain or discomfort at this time. No signs of acute distress or SOB noted. All needs attended throughout the shift. Safety precautions maintained with 3 side rails up, wheels locked, bed alarm on and in lowest position. Call light with pt. Will endorse to day shift nurse.
[2018-08-18 07:04] LABS: BASOPHILS % (AUTO) 0.6 % (0.0-2.0); EOSINOPHILS # (AUTO) 0.1 K/uL (0.0-0.4); EOSINOPHILS % (AUTO) 2.5 % (0.0-4.0); HEMATOCRIT 30.4 % (36-48); HEMOGLOBIN 9.6 g/dL (12.0-16.0); LYMPHOCYTES # (AUTO) 1.2 K/uL (1.0-5.5); LYMPHOCYTES % (AUTO) 21.8 % (20.5-51.5); MEAN CORPUSCULAR HEMOGLOBIN 32 pg (27-31); MEAN CORPUSCULAR HGB CONC 32 % (32-36); MEAN CORPUSCULAR VOLUME 100 fL (79.0-98.0); MONOCYTES # (AUTO) 0.5 K/uL (0.0-1.0); MONOCYTES % (AUTO) 8.7 % (1.7-9.3); NEUTROPHILS # (AUTO) 3.7 K/uL (1.8-7.7); NEUTROPHILS % (AUTO) 66.4 % (40.0-70.0); PLATELET COUNT (AUTO) 103 K/uL (130-430); RED BLOOD CELL COUNT(AUTO) 3.03 MIL/uL (4.2-6.2); RED CELL DISTRIBUTION WIDTH 19.1 % (9.0-15.0); WHITE BLOOD COUNT (AUTO) 5.6 K/uL (4.8-10.8)
[2018-08-18 07:36] LABS: TOTAL IRON BIND. CAPACITY 153 ug/dL (250-450)
[2018-08-18 07:48] LABS: ALBUMIN 2.5 g/dL (3.4-4.8); CALCIUM 8.9 mg/dL (8.4-11.0); CREATININE 3.48 mg/dL (0.55-1.30); POTASSIUM 3.7 mmol/L (3.5-5.1); TOTAL BILIRUBIN 0.7 mg/dL (0.0-1.0)
--- NOTE | 2018-08-18 07:52 | NUR ---
Opening Note Report received from [facility] shift nurse. Patient is currently resting in bed. Generalized edema has improved this morning. IV is on the LAC 22g, SL. Patient is due for dialysis again today. Call light is within reach and bed is in the lowest position. Will continue to monitor.
[2018-08-18 08:00] VITALS: BP_SYST 134
--- NOTE | 2018-08-18 08:10 | NUR ---
RN Note Dialysis started at this time.
[2018-08-18 08:36] LABS: THYROID STIMULATING HORMONE 0.99 uIu/mL (0.34-4.82)
[2018-08-18] MEDS: FUROSEMIDE 40 MG/4 ML VIAL IVP SCH ×2 (09:00→20:22)
[2018-08-18] MEDS: CARVEDILOL 6.25 MG TABLET (COREG) PO SCH ×2 (09:00→20:27)
[2018-08-18] MEDS: LISINOPRIL 20 MG TABLET PO SCH (09:00)
[2018-08-18] MEDS: ISOSORBIDE MONONITRATE 30 MG TAB.ER.24H PO SCH (09:00)
[2018-08-18] MEDS: SEVELAMER HCL 800 MG TABLET PO SCH ×3 (09:20→20:26)
[2018-08-18] MEDS: BRIMONIDINE TARTRATE 0.2% 5 mL EYE DROPS OP SCH ×3 (09:20→20:24)
[2018-08-18] MEDS: CINACALCET HCL 30 MG TABLET PO SCH (09:20)
[2018-08-18] MEDS: DORZOLAMIDE 2% OPHTHALMIC SOLN 5ML OP SCH ×3 (09:20→20:25)
[2018-08-18] MEDS: TIMOLOL MALEATE 0.5% OPHTHALMIC DROPS 5 ML OP SCH ×3 (09:20→20:25)
[2018-08-18] MEDS: ASPIRIN 81 MG TAB.CHEW PO SCH (09:21)
[2018-08-18] MEDS: LORATADINE 10 MG TABLET PO SCH (09:21)
[2018-08-18] MEDS: DOCUSATE SODIUM 100 MG CAPSULE PO SCH ×2 (09:21→20:25)
[2018-08-18] MEDS: FOLIC ACID 1 MG TABLET PO SCH (09:21)
[2018-08-18] MEDS: cefTRIAXone 1 GM IVPB PREMIX 50 ML IV SCH (09:21)
--- NOTE | 2018-08-18 09:34 | NUR ---
MD rounds Dr. Acuna is examining the patient at the bedside.
--- NOTE | 2018-08-18 10:20 | NUR ---
Rounds Patient is sleeping in bed. Dialysis is still in process.
[2018-08-18 11:32] VITALS: BP_SYST 142
--- NOTE | 2018-08-18 12:50 | NUR ---
Rounds Dialysis completed. 3.2 liters removed.
--- NOTE | 2018-08-18 14:38 | NUR ---
Rounds Patient is currently resting in bed. Family is at the bedside.
[2018-08-18 15:53] VITALS: BP_SYST 152
--- NOTE | 2018-08-18 16:16 | NUR ---
Rounds Patient is currently resting in bed. No signs of acute distress noted.
--- NOTE | 2018-08-18 18:18 | NUR ---
Closing Note Patient is sitting up in bed. Patient was dialyzed today 3.2l removed. IV is on the RFA 22g, SL. Generalized edema has improved. Call light is within reach and bed is in the lowest position.
[2018-08-18 19:00] VITALS: BP_SYST 145
--- NOTE | 2018-08-18 19:15 | NUR ---
change of shift.pt.presents stable status;general.pt.presents hemo-dialysis history.pt.presents av-shunt access;x2:lt.arm: functional.rt.arm:non-functional.language barrier extant;lithuanian;sole language.i am to attend to the pt.lithuanian.respiratory status stable@room air.pt.capable to reposition self.call light/telephone w/in the reach of the pt.
[2018-08-18 20:00] VITALS: BP_SYST 145
--- NOTE | 2018-08-18 20:00 | NUR ---
pt.assessed.v/s assessed;values w/in normal limits.no c/o pain,nausea.i have confirmed w/ the pt.the av-shunt:locations x2.pt.has stated she presents av-shunt access x2;lt.arm:functional/rt.arm;non-functional.lt.arm:av-shunt:presents bruit/trill.i have placed a nsg/ pt./alert sign:re;lt.arm av-shunt;i inquired where nsg locates the b/p cuff for b/p assessment.pt.states the lt.forearm.i have apprised the pt.that snacks/beverages are available w/in the shift.pt.had requested apple juice.i have provided the apple juice.general status stable.respiratory status stable;unlabored@room air.call light/telephone placed w/in the reach of the pt.
[2018-08-18] MEDS: LATANOPROST 2.5 ML DROPS (XALATAN) OP SCH (20:23)
[2018-08-18] MEDS: ALPRAZolam 0.25 MG TABLET PO SCH (20:26)
[2018-08-18] MEDS: ATORVASTATIN 20 MG TABLET PO SCH (20:26)
--- NOTE | 2018-08-18 20:30 | NUR ---
i have assisted the pt.to the restroom.i have assisted the pt's return to bed.i inquired if the pt.presents requests;pt.stated no. i inquired if i may provide socks;clean.pt.stated yes,she would like a clean pair of socks.i have provided the socks.i assessed the pt's gait;gait presented unsteady;requires assistance w/ ambulation.
[2018-08-18] MEDS: INSULIN GLARGINE 100 UNITS/ML 10 ML VIAL SUBCUT SCH (20:35)
--- NOTE | 2018-08-18 21:00 | NUR ---
2100p medications administered.opthalmic x4 medications.no c/o pain,nausea.no requests posited @this hour.
--- NOTE | 2018-08-18 22:00 | NUR ---
pt.assessed.pt.presents quiescent affect;calm,somnolent.general status stale.respiratory status stable. pt.capable to reposition self.call light/telephone placed w/in the reach of the pt.
--- NOTE | 2018-08-19 | NUR ---
pt.assessed.v/s assessed;values w/in normal limits.no c/o pain,nausea.pt.presents quiescent affect;calm,somnolent. i have assessed the blood glucose;value;195mg/dl.i have administered:regular insulin:2-units.no requests posited@this hour.general status stable.respiratory status stable;unlabored.pt.capable to reposition self.call light/telephone placed w/in the reach of the pt.
[2018-08-19 00:30] VITALS: BP_SYST 119
[2018-08-19] MEDS: INSULIN REGULAR, HUMAN 100 UNITS/ML, 10 ML VIAL (humuLIN R) SUBCUT PRN ×2 (00:37→12:06)
--- NOTE | 2018-08-19 02:00 | NUR ---
pt.assessed.pt.presents quiescent affect;calm,somnolent.general status stable.respiratory status stable:unlabored. pt.capable to reposition self.call light/telephone placed w/in the reach of the pt.
--- NOTE | 2018-08-19 04:00 | NUR ---
pt.awake.i inquired if i may offer the pt.any items.pt.stated wilma crackersx4 packets/apple juice .i have provided the snacks.no c/o pain,nausea.pt.capable to reposition self.general status stable.respiratory status stable;unlabored.call light/ telephone w/in the reach of the pt.
[2018-08-19] MEDS: PANTOPRAZOLE SODIUM 40 MG TAB PO SCH (05:57)
--- NOTE | 2018-08-19 06:36 | NUR ---
pt.assessed.pt.presents quiescent affect;calm,somnolent.i have assessed the blood glucose;values x2;63/68mg/dl.pt.is asymptomatic. i have offered a snack.pt.assessed for cleanliness.pt.capable to reposition self.general status stable.respiratory status stable. pt.presents hemo- dialysis hx;i have weighed the pt.i haveadministere the am medications;protonix.call light/telephone w/in the reach of the pt. no c/o pain,nausea.
[2018-08-19 07:45] VITALS: BP_SYST 125
--- NOTE | 2018-08-19 07:45 | NUR ---
INITIAL NOTE RECEIVED PT IN BED, NO S/S OF DISTRESS OR SOB NOTED, PT HAS NO C/O PAIN AT THIS TIME, PT IN STABLE CONDITION, PT AAOX4, VERBAL. IV CATHETER PATENT, NO SIGNS OF INFECTION OR INFILTRATION NOTED, SALINE LOCK. PT HAS BILATERAL SCD'S IN PLACE. BED AT LOWEST POSITION, CALL LIGHT WITHIN REACH, WILL CONTINUE TO MONITOR PT FOR ANY CHANGES. FALL AND SAFETY PRECAUTIONS IN PLACE. PT HAS AN AV SHUNT ON LEFT ARM BUT DOES NOT WORK, NO BRUIT OR THRILL PRESENT. ACCESS IN ON RIGHT UPPER ARM, THRILL AND BRUIT PRESENT.
[2018-08-19 08:30] LABS: ALBUMIN 2.8 g/dL (3.4-4.8); CALCIUM 8.8 mg/dL (8.4-11.0); POTASSIUM 3.7 mmol/L (3.5-5.1); TOTAL BILIRUBIN 0.6 mg/dL (0.0-1.0)
[2018-08-19] MEDS: DOCUSATE SODIUM 100 MG CAPSULE PO SCH (08:38)
[2018-08-19] MEDS: SEVELAMER HCL 800 MG TABLET PO SCH (08:38)
[2018-08-19] MEDS: CINACALCET HCL 30 MG TABLET PO SCH (08:38)
[2018-08-19] MEDS: ASPIRIN 81 MG TAB.CHEW PO SCH (08:39)
[2018-08-19] MEDS: LORATADINE 10 MG TABLET PO SCH (08:39)
[2018-08-19] MEDS: FOLIC ACID 1 MG TABLET PO SCH (08:39)
[2018-08-19] MEDS: LISINOPRIL 20 MG TABLET PO SCH (08:41)
[2018-08-19] MEDS: ISOSORBIDE MONONITRATE 30 MG TAB.ER.24H PO SCH (08:41)
[2018-08-19] MEDS: CARVEDILOL 6.25 MG TABLET (COREG) PO SCH (08:41)
[2018-08-19] MEDS: FUROSEMIDE 40 MG/4 ML VIAL IVP SCH (08:43)
[2018-08-19] MEDS: BRIMONIDINE TARTRATE 0.2% 5 mL EYE DROPS OP SCH (08:49)
[2018-08-19] MEDS: DORZOLAMIDE 2% OPHTHALMIC SOLN 5ML OP SCH (08:50)
[2018-08-19] MEDS: TIMOLOL MALEATE 0.5% OPHTHALMIC DROPS 5 ML OP SCH (08:51)
[2018-08-19] MEDS: cefTRIAXone 1 GM IVPB PREMIX 50 ML IV SCH (10:10)
--- NOTE | 2018-08-19 10:20 | NUR ---
ROUNDS PT IN BED, NO S/S OF DISTRESS OR SOB NOTED, PT HAS NO C/O PAIN AT THIS TIME, PT IN STABLE CONDITION, PT WATCHING TV, WILL CONTINUE TO MONITOR PT FOR ANY CHANGES.
--- NOTE | 2018-08-19 12:10 | NUR ---
ROUNDS PT IN BED, NO S/S OF DISTRESS OR SOB NOTED, PT HAS NO C/O PAIN AT THIS TIME, PT IN STABLE CONDITION, WILL CONTINUE TO MONITOR PT FOR ANY CHANGES, PT WATCHING TV.
[2018-08-19 12:15] VITALS: BP_SYST 143
[2018-08-19 12:18] VITALS: BP_SYST 143
[2018-08-20 06:21] LABS: FOLATE (FOLIC ACID) >20.0 ng/mL (>3.0)
[2018-08-20 11:20] LABS: FERRITIN 1493 ng/mL (15-150)
== END 2018-08-19 13:20 | disposition home or self-care (01) | DRG 194 ==
LOC: SED 09:15 → SMU 15:06
PROVIDERS: ADMIT Internal Medicine Hospice and Palliative Medicine; ATTEND Internal Medicine Hospice and Palliative Medicine
PROC: 5A1D70Z Performance of Urinary Filtration, Intermittent, Less than 6 Hours Per Day (ICD-10-PCS; principal; 2018-08-17)
PROC: 5A1D70Z Performance of Urinary Filtration, Intermittent, Less than 6 Hours Per Day (ICD-10-PCS; 2018-08-18)
DX: I13.2 Hypertensive heart and chronic kidney disease with heart failure and with stage 5 chronic kidney disease, or end stage renal disease (principal); E11.21 Type 2 diabetes mellitus with diabetic nephropathy; E11.42 Type 2 diabetes mellitus with diabetic polyneuropathy; I27.20 Pulmonary hypertension, unspecified; E11.319 Type 2 diabetes mellitus with unspecified diabetic retinopathy without macular edema; L03.115 Cellulitis of right lower limb; I25.10 Atherosclerotic heart disease of native coronary artery without angina pectoris; N18.6 End stage renal disease; E11.22 Type 2 diabetes mellitus with diabetic chronic kidney disease; E11.51 Type 2 diabetes mellitus with diabetic peripheral angiopathy without gangrene; E11.621 Type 2 diabetes mellitus with foot ulcer; E78.5 Hyperlipidemia, unspecified; H40.9 Unspecified glaucoma; H05.222 Edema of left orbit; I50.43 Acute on chronic combined systolic (congestive) and diastolic (congestive) heart failure; I42.0 Dilated cardiomyopathy; L97.409 Non-pressure chronic ulcer of unspecified heel and midfoot with unspecified severity; F41.9 Anxiety disorder, unspecified; I44.7 Left bundle-branch block, unspecified; L03.116 Cellulitis of left lower limb; D63.1 Anemia in chronic kidney disease; E21.1 Secondary hyperparathyroidism, not elsewhere classified; I25.2 Old myocardial infarction; Z79.4 Long term (current) use of insulin; Z99.2 Dependence on renal dialysis; Z79.899 Other long term (current) drug therapy; Z79.82 Long term (current) use of aspirin
CPT/HCPCS: 36415; 71045; 76700-TC; 80053; 80061; 82607; 82728; 82746; 82962; 82977-TC; 83516; 83540-TC; 83550-TC; 83605; 83690-TC; 83880; 84443-TC; 84484; 85025; 85610-TC; 85730-TC; 87040-TC; 87081; 90935; 90937; 93005; 93970; 96365; 99285; J0696; J1815; J1940; J7030

== ENCOUNTER 2019-08-01 12:37 | Emergency (ER) | payer MEDICAID ==
[~2019-08-01] VITALS: Ht 152.4 cm; Wt 41.3 kg
[~2019-08-01 12:37] MED LIST changes: -ATEN-41 PO; -CHOL100053 PO; -CLOP300T2 PO; -COR3.125 PO; -FLO44 INH; -GABA-529 PO; -NEPH PO; +NIFE-2 PO; -NIFE90TA53 PO; -NITSL SL
[2019-08-01 13:03] VITALS: BP_SYST 141
[2019-08-01] MEDS ORDERED: RIOC0.5T PO (13:27)
[2019-08-01] MEDS ORDERED: FLUT50DI (13:27)
[2019-08-01] MEDS ORDERED: INSU200I SUBQ (13:27)
[2019-08-01] MEDS ORDERED: [UNRECOGNIZED DRUG - CODE] PO (13:27)
[2019-08-01] MEDS ORDERED: INSU100I26 SUBQ (13:27)
[2019-08-01] MEDS ORDERED: CARV3.1246 PO (13:27)
[2019-08-01 16:55] LABS: BASOPHILS % (AUTO) 0.4 % (0.0-2.0); EOSINOPHILS # (AUTO) 0.1 K/uL (0.0-0.4); EOSINOPHILS % (AUTO) 1.9 % (0.0-4.0); HEMOGLOBIN 12.1 g/dL (12.0-16.0); LYMPHOCYTES # (AUTO) 1.4 K/uL (1.0-5.5); LYMPHOCYTES % (AUTO) 19.4 % (20.5-51.5); MEAN CORPUSCULAR HEMOGLOBIN 33 pg (27-31); MEAN CORPUSCULAR HGB CONC 32 % (32-36); MEAN CORPUSCULAR VOLUME 103 fL (79.0-98.0); MONOCYTES # (AUTO) 0.5 K/uL (0.0-1.0); MONOCYTES % (AUTO) 7.6 % (1.7-9.3); NEUTROPHILS % (AUTO) 70.7 % (40.0-70.0); PLATELET COUNT (AUTO) 137 K/uL (130-430); RED CELL DISTRIBUTION WIDTH 15.8 % (9.0-15.0); WHITE BLOOD COUNT (AUTO) 7.1 K/uL (4.8-10.8)
[2019-08-01 17:02] LABS: CALCIUM 9.9 mg/dL (8.4-11.0); CREATININE 3.21 mg/dL (0.55-1.30); INR 1.1 (0.8-1.2); POTASSIUM 4.1 mmol/L (3.5-5.1)
[2019-08-01 17:04] LABS: C-REACTIVE PROTEIN QUANT 1.3 mg/dL (0-0.5); TOTAL BILIRUBIN 0.7 mg/dL (0.0-1.0)
[2019-08-01 17:16] LABS: ALBUMIN 3.8 g/dL (3.4-4.8)
[2019-08-01 18:05] VITALS: BP_SYST 144
== END 2019-08-01 18:03 | disposition home or self-care (01) ==
LOC: SED 12:37
DX: R60.0 Localized edema (principal); I13.2 Hypertensive heart and chronic kidney disease with heart failure and with stage 5 chronic kidney disease, or end stage renal disease; E11.22 Type 2 diabetes mellitus with diabetic chronic kidney disease; N18.6 End stage renal disease; I50.9 Heart failure, unspecified; E11.40 Type 2 diabetes mellitus with diabetic neuropathy, unspecified
CPT/HCPCS: 36415; 80053; 85025; 85610-TC; 85730-TC; 86140; 93970; 99284

== ENCOUNTER 2019-08-25 10:50 | Emergency (ER) | payer MEDICAID ==
[~2019-08-25] VITALS: Ht 152.4 cm; Wt 41.7 kg
[~2019-08-25 10:50] MED LIST changes: -ALPR1TAB2 PO; -ASA81 PO; +CARV3.1246 PO; +FLUT50DI; -INSU100I26 SQ; +INSU100I26 SUBQ; -INSU100V; +INSU200I SUBQ; -ISMO20 PO; -LISI40TA4 PO; -NIFE-2 PO; +RIOC0.5T PO; -SEN30 PO; +[UNRECOGNIZED DRUG - CODE] PO
[2019-08-25 11:10] VITALS: BP_SYST 132
[2019-08-25] MEDS ORDERED: MORPHINE 4 MG/ML INJ. SYRINGE IM ONE (12:15)
[2019-08-25 12:50] LABS: BASOPHILS % (AUTO) 0.6 % (0.0-2.0); EOSINOPHILS # (AUTO) 0.1 K/uL (0.0-0.4); EOSINOPHILS % (AUTO) 1.6 % (0.0-4.0); HEMATOCRIT 32.9 % (36-48); HEMOGLOBIN 10.6 g/dL (12.0-16.0); LYMPHOCYTES # (AUTO) 1.1 K/uL (1.0-5.5); LYMPHOCYTES % (AUTO) 14.4 % (20.5-51.5); MEAN CORPUSCULAR HEMOGLOBIN 33 pg (27-31); MEAN CORPUSCULAR HGB CONC 32 % (32-36); MEAN CORPUSCULAR VOLUME 102 fL (79.0-98.0); MONOCYTES # (AUTO) 0.7 K/uL (0.0-1.0); MONOCYTES % (AUTO) 8.6 % (1.7-9.3); NEUTROPHILS # (AUTO) 5.7 K/uL (1.8-7.7); NEUTROPHILS % (AUTO) 74.8 % (40.0-70.0); PLATELET COUNT (AUTO) 129 K/uL (130-430); RED BLOOD CELL COUNT(AUTO) 3.23 MIL/uL (4.2-6.2); RED CELL DISTRIBUTION WIDTH 16.1 % (9.0-15.0); WHITE BLOOD COUNT (AUTO) 7.6 K/uL (4.8-10.8)
[2019-08-25 13:10] LABS: CALCIUM 10.4 mg/dL (8.4-11.0); CREATININE 3.75 mg/dL (0.55-1.30); POTASSIUM 4.1 mmol/L (3.5-5.1)
[2019-08-25] MEDS ORDERED: PREDNISONE 20 MG TABLET PO ONE (13:15)
[2019-08-25] MEDS ORDERED: SULFAMETHOXAZOLE/TRIMETHOPR DS 1 TABLET PO ONE (13:15)
[2019-08-25] MEDS ORDERED: CEPHALEXIN 500 MG CAPSULE PO ONE (13:15)
[2019-08-25 13:24] LABS: ALBUMIN 3.8 g/dL (3.4-4.8); TOTAL BILIRUBIN 0.6 mg/dL (0.0-1.0)
[2019-08-25 13:28] VITALS: BP_SYST 132
== END 2019-08-25 13:28 | disposition home or self-care (01) ==
LOC: SED 10:50
DX: L03.011 Cellulitis of right finger (principal); I13.2 Hypertensive heart and chronic kidney disease with heart failure and with stage 5 chronic kidney disease, or end stage renal disease; E11.22 Type 2 diabetes mellitus with diabetic chronic kidney disease; N18.6 End stage renal disease; I50.9 Heart failure, unspecified; Z99.2 Dependence on renal dialysis; Z79.4 Long term (current) use of insulin; Z79.899 Other long term (current) drug therapy
CPT/HCPCS: 36415; 73140; 80053; 83605; 85025; 87040; 96372; 99284; J2270; J7512